=== PATIENT | male | born 1950 | race Caucasian/White ===

== ENCOUNTER 2019-09-05 10:35 | Outpatient (CLI) | payer MEDICARE, SELFPAY ==
--- NOTE | ~2019-09-05 | US_ITS ---
EXAMINATION: US venous doppler LE EXAM DATE: 09/05/2019 11:18 INDICATION: Right-sided DVT follow-up. TECHNIQUE: Multiple grayscale, color flow and Doppler images of the right lower extremity deep venous system obtained and reviewed. Comparison is made to prior examination from 05/14/2019. FINDINGS: RIGHT SIDE Common femoral: --------No thrombosis. 2 seconds reflux. Profunda femoral: ------- Normal. Femoral: Normal. Popliteal: No thrombosis. 1.5 seconds reflux. Posterior tibial: --------- Normal. Peroneal: Nonocclusive thrombus. Gastrocnemius: Not visualized. Soleus: Not visualized. Greater saphenous: ----- Normal. Lesser saphenous: ------ Not visualized. IMPRESSION: 1. Persistent right gastrocnemius DVT. 2. Common femoral, popliteal venous reflux. Reviewed, dictated and finalized at location A. 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
== END 2019-09-05 10:36 | disposition home or self-care (01) ==
PROVIDERS: PCP Family Medicine; Visit Provider Internal Medicine Hematology & Oncology
DX: I82.461 Acute embolism and thrombosis of right calf muscular vein (principal)
CPT/HCPCS: 93971

== ENCOUNTER 2020-03-05 08:20 | Outpatient (CLI) | payer MEDICARE, SELFPAY ==
--- NOTE | ~2020-03-05 | US_ITS ---
EXAMINATION: US venous doppler LE EXAM DATE: 03/05/2020 09:10 INDICATION: Follow-up DVT. TECHNIQUE: Multiple grayscale, color flow and Doppler images of the right lower extremity deep venous system obtained and reviewed. Comparison is made to prior examination from 09/05/2019. FINDINGS: RIGHT SIDE Common femoral: -------- Normal. Profunda femoral: ------- Normal. Femoral: Normal. Popliteal: Normal. Posterior tibial: --------- Normal. Peroneal: Normal. Gastrocnemius: Mostly patent. Small wall adherent chronic thrombus or scarring. Soleus: Not visualized. Greater saphenous: ----- Normal. Lesser saphenous: ------ Not visualized. IMPRESSION: 1. 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 Reviewed, dictated and finalized at location B.
== END 2020-03-05 08:21 | disposition home or self-care (01) ==
LOC: ANHIMG 08:23
PROVIDERS: PCP Family Medicine; Visit Provider Internal Medicine Hematology & Oncology
DX: I82.4Y1 Acute embolism and thrombosis of unspecified deep veins of right proximal lower extremity (principal)
CPT/HCPCS: 93971

== ENCOUNTER 2021-01-15 09:18 | Outpatient (CLI) | payer MEDICARE, SELFPAY ==
--- NOTE | 2021-01-15 16:08 | WPDPFTINT ---
PFT Procedure Performed PFT Procedure Performed Spirometry with Pre/Post Bronchodilator Plethysmography (Lung Vol) Diffusing Cap (DLCO) Flow Vol Loop PFT Interpretation This is a pulmonary function test with pre and post-bronchodilator spirometry, plethysmography and diffusing capacity. The test was performed and results interpreted in accordance with the 2019 and 2005 ATS/ERS Task Force guidelines respectively using the Global Lung Function Initiative-2012 reference equations. Patient demonstrated good effort and cooperation. Reproducibility criteria were met. The quality of the pre bronchodilator spirometry maneuver was Grade B and post bronchodilator spirometry maneuver was Grade B. Findings: Spirometry: There is decreased maximal expiratory airflow at low lung volumes with concave expiratory flow tracing. The pre bronchodilator FVC is 3.93 L, 89% predicted. The pre bronchodilator FEV1 is 2.47 L, 74% predicted. The FEV1: FVC ratio 63%. The post bronchodilator FVC is 4.63 L, representing an 18% increase. The post bronchodilator FEV1 is 2.99 L, representing a 21% increase. Plethysmography: The total lung capacity is 10.28 L, 143% predicted. Functional residual capacity is 6.78 L, 177% predicted. The residual volume is 6.30 L, 254% predicted. Diffusing capacity: The absolute diffusion capacity is 28.1, 105% predicted. The diffusing capacity corrected for alveolar volume is 4.37, 112% predicted. Impression: There is a mild obstructive abnormality with significant improvement after inhaling a single dose of albuterol. The increase in residual volume is consistent with air trapping from an obstructive abnormality. Hyperinflation is present is demonstrated by the increase in functional residual capacity and total lung capacity and is consistent with an obstructive abnormality. The diffusing capacity is normal There are no prior studies for comparison
== END 2021-01-15 09:19 | disposition home or self-care (01) ==
PROVIDERS: PCP Family Medicine; Visit Provider Family Medicine
DX: I49.9 Cardiac arrhythmia, unspecified (principal); Z86.711 Personal history of pulmonary embolism; R06.02 Shortness of breath; B94.8 Sequelae of other specified infectious and parasitic diseases; R94.2 Abnormal results of pulmonary function studies
CPT/HCPCS: 94060; 94726; 94729

== ENCOUNTER 2021-02-04 15:27 | Emergency (ER) | payer MEDICARE, SELFPAY ==
[2021-02-04] VITALS (21 sets, daily range): BP systolic 109–144; BP diastolic 66–87; PULSE 55–63; RESP 10–20; TEMP 36.6; O2SAT 95–100
--- NOTE | ~2021-02-04 | US_ITS ---
US venous doppler [facility] DATE: 02/04/2021 16:44 INDICATION: Left lower extremity swelling TECHNIQUE: Real-time and color flow imaging and Doppler analysis of the veins of the left lower extre mity COMPARISON: None FINDINGS: The left greater saphenous vein is patent. There is spontaneous and phasic flow and normal augmentation and color flow signal and normal compression of the deep veins of the left leg. IMPRESSION: No evidence of deep venous thrombosis of the left leg Reviewed, dictated and finalized at Location A. Reviewed, dictated and finalized at location A.
--- NOTE | ~2021-02-04 | XR_ITS ---
XR foot LT min 3V DATE: 02/04/2021 17:01 INDICATION: Fall after knee surgery. Discoloration. TECHNIQUE: 4 views COMPARISON: None FINDINGS: Mild plantar calcaneal enthesopathy. Osteoarthritic change at the first and to a lesser extent second through fourth metatarsophalangeal j oints. There is a linear lucency overlying the neck and head of the proximal phalanx of the third digit on o ne of the oblique views which may indicate a very subtle nondisplaced fracture, not confirmed on the other views. No other fracture, dislocation, periosteal reaction or bone destruction is detected. IMPRESSION: Questionable linear nondisplaced fracture at the neck and head of the proximal phalanx of the third digit. Consider dedicated third toe radiographic evaluation Osteoarthritic arthritis at the first and to a lesser extent second through fourth metatarsophalangea l joints Plantar calcaneal enthesopathy Reviewed, dictated and finalized at location A. IMPRESSION: Questionable linear nondisplaced fracture at the neck and head of t he proximal phalanx of the third digit. Consider dedicated third toe radiograph ic evaluation Osteoarthritic arthritis at the first and to a lesser extent second through fou rth metatarsophalangeal joints Plantar calcaneal enthesopathy
--- NOTE | ~2021-02-04 | US_ITS ---
EXAMINATION: US arterial ankle brachial ind DATE: 02/04/2021 16:44 INDICATION: Swelling of the left lower extremity. Trophic changes including thick toenails and loss o f hair. TECHNIQUE: Segmental pressures and plethysmographic and Doppler waveforms of the brachial and lower e xtremity arteries were obtained. COMPARISON: None. FINDINGS: Right and left brachial artery pressures of 123 mm Hg and 126 mm Hg, respectively, are concordant (no rmal difference <= 30 mmHg). The right ankle-brachial index (MICHAELA) is 1.59 (normal >= 0.9-1.0). The right great toe-brachial index (TBI) is 0.79 (normal >= 0.65). Arterial Doppler waveforms are triphasic. The left MICHAELA is 1.19. The left TBI is 0.68. Arterial Doppler waveforms are triphasic. IMPRESSION: Normal examination Reviewed, dictated and finalized at Location A. Reviewed, dictated and finalized at location A. IMPRESSION: Normal examination
--- NOTE | ~2021-02-04 | XR_ITS ---
XR ankle LT min 3V DATE: 02/04/2021 16:21 INDICATION: Pain and swelling TECHNIQUE: 4 views COMPARISON: None FINDINGS: Plantar calcaneal enthesopathy. There is generalized soft tissue swelling of the ankle. No fracture or dislocation of the ankle or disruption of the ankle mortise. No periosteal reaction or bone destruction. IMPRESSION: Plantar calcaneal enthesopathy Soft tissue swelling Reviewed, dictated and finalized at location A.
--- NOTE | 2021-02-04 16:07 | ED.EXTPRO ---
HPI - Extremity Problem General Chief complaint: Extremity Problem,Nontraumatic Stated complaint: left foot discoloration Time Seen by Provider: 02/04/21 15:40 Source: patient Limitations: no limitations History of Present Illness HPI Narrative: 71-year-old male Patient lives in [place] and recently had a left knee replaced at facility in [facility] Patient states while he was still in the hospital and under the influence of a nerve block he wrenched his left ankle He reports that x-rays done at the time were fine However since going home, and also since resuming the Xarelto that he usually takes because of VTE in his right leg, he has noticed a substantial increase in the amount of swelling and ecchymosis in the lower leg on the left side I guess today a visiting nurse was concerned there could be some vascular compromise or that the orthopedist in [place] had missed a fracture and should get checked for this here since he sees Dr. Jacobs Related Data Allergies Allergy/AdvReac Type Severity Reaction Status Date / Time No Known Allergies Allergy Unverified 03/29/19 08:23 Review of Systems Review of Systems: All systems reviewed & are unremarkable except as noted in HPI and below Constitutional: Constitutional: Reports no additional constitutional complaints, Denies chills, Denies fever(s) and Denies headache(s) Eyes: Eyes: Reports no additional eye complaints and Denies change in vision ENT: Denies headache(s) and Denies sore throat Cardiovascular: Cardiovascular: Denies chest pain and Denies dyspnea Respiratory: Respiratory: Denies cough and Denies dyspnea Gastrointestinal: Gastrointestinal: Denies abdominal pain, Denies diarrhea and Denies vomiting Genitourinary: Genitourinary: Denies dysuria and Denies urinary frequency Musculoskeletal: Musculoskeletal: Denies deformity, Reports arthralgias, Reports joint swelling, Reports muscle cramps and Denies numbness Integumentary/Breasts: Skin/Breast: Reports erythema, Denies rash and Denies wounds Neurologic: Denies headache(s), Denies focal weakness and Denies numbness Psychiatric: Psychiatric: Reports no additional psychiatric complaints Endocrine: Endocrine: Reports no additional endocrine complaints Hematologic/Lymphatic: Hematologic/Lymphatic: Reports no additional hematologic/lymphatic complaints Allergic/Immunologic: Allergic/Immunologic: Reports no additional allergic/immunologic complaints [facility] Social History Social History Smoking status: Never smoker Exam Const: General: cooperative, no acute distress and alert Orientation/consciousness: patient oriented x3 (alert) HENMT: Head: normal to inspection, normocephalic and atraumatic Ears: external ears normal General nose exam: no epistaxis Eyes: Conjunctivae: conjunctivae normal EOM: EOMs intact bilaterally Neck: Neck: normal visual inspection, supple and no JVD Resp: Effort & Inspection: normal respiratory effort and not labored Auscultation: other (BS =) Skin: General skin exam: no rashes or lesions noted Wounds: wounds noted Neuro: General: patient oriented x3 (alert) and moves all extremities Speech: normal speech Extrem: General: edema Other: Left leg, knee dressing is intact, there is quite a bit of swelling and scattered ecchymoses from the knee down to the toes, there is 1 large and 1 small blister on the medial leg, no deformity or crepitus, no warmth, dorsalis pedis is dopplerable Psych: Affect: normal affect Course Course Emergency Course: Rechecked in light of expiratory report, that third toe is not very tender at all so the physical exam really does not support the idea of a little chip fracture there Vital Signs Vital signs: Vital Signs Temperature 36.6 C 02/04/21 15:57 Pulse Rate 58 L 02/04/21 15:57 Respiratory Rate 14 02/04/21 15:57 Blood Pressure 144/76 H 02/04/21 15:57 Pulse Oximetry 99 02/04/21 15:57 Temperature 36.6 C 07
== END 2021-02-04 18:15 | disposition home or self-care (01) ==
PROVIDERS: Emergency Provider Emergency Medicine; PCP Family Medicine
DX: G89.18 Other acute postprocedural pain (principal); Z96.652 Presence of left artificial knee joint; Z79.01 Long term (current) use of anticoagulants; M77.32 Calcaneal spur, left foot; M19.072 Primary osteoarthritis, left ankle and foot; R93.6 Abnormal findings on diagnostic imaging of limbs
CPT/HCPCS: 73610; 73630; 93922; 93971; 99284

== ENCOUNTER 2023-05-11 09:30 | Outpatient (CLI) | payer MEDICARE, SELFPAY ==
[2023-05-11 09:44] LABS: Basophils Percent Auto 0.6 % (0.2-1.2); Eosinophils Absolute Auto 0.1 K/mm3 (0-0.3); Eosinophils Percent Auto 1.4 % (0-4.4); Hematocrit 45.4 % (42.0-52.0); Hemoglobin 15.1 g/dL (14.0-18.0); Immature Granulocyte Absolute 0.03 K/mm3 (0.00-0.031); Immature Granulocyte Percent A 0.5 % (0-0.5); Lymphocytes Absolute Auto 1.44 K/mm3 (0.9-3.2); Mean Corpuscular HGB Conc 33.3 g/dl (32-36); Mean Corpuscular Hemoglobin 28.3 pg (26-34); Mean Corpuscular Volume 85.2 fl (80-100); Mean Platelet Volume 9.2 fl (7.4-10.4); Monocytes Absolute Auto 0.6 K/mm3 (0.1-0.6); Monocytes Percent Auto 9.6 % (2.6-8.5); Neutrophils Absolute Auto 4.3 K/mm3 (1.3-6.7); Neutrophils Percent Auto 65.9 % (45.5-73.1); Platelet Count Result 202 k/mm3 (150-375); Red Blood Count 5.33 M/mm3 (4.6-6.20); Red Cell Distribution Width 14.3 % (11.5-14.5); White Blood Count 6.6 K/mm3 (4.5-10.0)
[2023-05-11 09:49] LABS: Blood Urea Nitrogen 19 mg/dL (8-26); Carbon Dioxide 24 mmol/L (22-30); Chloride 104 mmol/L (98-109); Estimated Glomerular Filt Rate > 60; Glucose 125 mg/dL (70-105); Ionized Calcium (POC) 1.14 mmol/L (1.11-1.31); Potassium 3.5 mmol/L (3.5-4.9); Sodium 140 mmol/L (138-146)
[2023-05-11 12:31] LABS: Alanine Aminotransferase 26 U/L (6-50); Albumin Level 4.3 g/dL (3.5-5.1); Alkaline Phosphatase 67 U/L (38-126); Anion Gap 12 mmol/L (8-16); Aspartate Amino Transferase 28 U/L (17-59); Blood Urea Nitrogen 18 mg/dL (9-20); Calcium 8.8 mg/dL (8.4-10.2); Carbon Dioxide 21 mmol/L (22-30); Chloride 104 mmol/L (98-107); Estimated Glomerular Filt Rate > 60; Glucose 120 mg/dL (65-110); Potassium 3.5 mmol/L (3.4-5.0); Sodium 137 mmol/L (137-145)
== END 2023-05-11 09:31 | disposition home or self-care (01) ==
LOC: ANHLAB 09:34
PROVIDERS: PCP Family Medicine; Visit Provider Internal Medicine Hematology & Oncology
DX: I26.92 Saddle embolus of pulmonary artery without acute cor pulmonale (principal)
CPT/HCPCS: 36415; 80047; 80053; 85025

== ENCOUNTER 2024-05-13 09:41 | Outpatient (CLI) | payer MEDICARE, SELFPAY ==
[2024-05-13 10:03] LABS: Basophils Percent Auto 0.2 % (0.2-1.2); Eosinophils Absolute Auto 0.1 K/mm3 (0-0.3); Eosinophils Percent Auto 1.2 % (0-4.4); Hematocrit 45.5 % (42.0-52.0); Hemoglobin 15.2 g/dL (14.0-18.0); Immature Granulocyte Absolute 0.04 K/mm3 (0.00-0.031); Immature Granulocyte Percent A 0.5 % (0-0.5); Lymphocytes Absolute Auto 1.32 K/mm3 (0.9-3.2); Lymphocytes Percent Auto 16.3 % (18.3-44.2); Mean Corpuscular HGB Conc 33.4 g/dl (32-36); Mean Corpuscular Hemoglobin 29.2 pg (26-34); Mean Corpuscular Volume 87.3 fl (80-100); Mean Platelet Volume 8.9 fl (7.4-10.4); Monocytes Absolute Auto 0.7 K/mm3 (0.1-0.6); Monocytes Percent Auto 8.5 % (2.6-8.5); Neutrophils Percent Auto 73.3 % (45.5-73.1); Platelet Count Result 190 k/mm3 (150-375); Red Blood Count 5.21 M/mm3 (4.6-6.20); Red Cell Distribution Width 14.4 % (11.5-14.5); White Blood Count 8.1 K/mm3 (4.5-10.0)
[2024-05-13 10:06] LABS: Blood Urea Nitrogen 19 mg/dL (8-26); Carbon Dioxide 25 mmol/L (22-30); Chloride 102 mmol/L (98-109); Estimated Glomerular Filt Rate > 60; Glucose 103 mg/dL (70-105); Ionized Calcium (POC) 1.19 mmol/L (1.11-1.31); Potassium 3.8 mmol/L (3.5-4.9); Sodium 139 mmol/L (138-146)
[2024-05-13 12:20] LABS: D Dimer 0.28 ug/mL (<0.48)
== END 2024-05-13 09:42 | disposition home or self-care (01) ==
LOC: ANHLAB 09:47
PROVIDERS: PCP Family Medicine; Visit Provider Internal Medicine Hematology & Oncology
DX: I26.92 Saddle embolus of pulmonary artery without acute cor pulmonale (principal)
CPT/HCPCS: 36415; 80047; 85025; 85380

== ENCOUNTER 2025-05-14 09:34 | Outpatient (CLI) | payer MEDICARE, SELFPAY ==
--- OUTSIDE RECORDS SUMMARY | 2024-06-15 04:00 | XMS_ITS ---
Author Organization [facility] Address [address] [place] [address] Care Team Providers Care Kitchen Assistant Name Role Phone Dr. Yenifer Adamson Primary Care Provider [phone] Migration, Provider Unavailable Unavailable REASON FOR VISIT EMR-Malick Encounters Encounter Location Date Provider Diagnosis [facility] [address] [place] [address] 06/15/2024 Provider Migration Plan Of Treatment Medication Medication Name Sig Start Date Stop Date Notes Benzonatate 100 MG Capsule 1 Oral three times a day; Duration: 10 10/06/2022 10/15/2022 ProAir RespiClick 108 (90 Base) MCG/ACT Aerosol Powder Breath Activated 2 Inhalation every 4-6 hours; Duration: 0 01/21/2021 03/02/2023 ,discontinuereason:D iscontinued,PRN Reason:for cough Tamsulosin HCl 0.4 MG Capsule 1 Oral every day; Duration: 02/26/2024 02/26/2024 Rx Refill Request,discontinuer paco:Refilled Vitamin B-12 1000 MCG Tablet 1 Oral every day; Duration: 0 08/18/2021 08/18/2021 Vitamin D2 1,250 mcg (50,000 unit) ; Duration: 0 01/19/2022 04/10/2022 ,discontinuereas on:D iscontinued *Pick strength-form from [facility] for eRX* Triamcinolone Acetonide 0.1 % Cream External two times a day; Duration: 0 03/28/2024 03/28/2024 Cymbalta 30 MG Capsule Delayed Release Particles 1 Oral every night at bedtime; Duration: 30 05/26/2021 08/17/2021 ,discontinuereason:D iscontinued Doxepin 3 mg Tablet(s) 1 BY MOUTH every night at bedtime; Duration: 10/11/2023 04/07/2024 *Reorder from [facility] for eRx and Interaction Alerts* Zithromax Z-Hugh 250 MG Tablet Oral; Duration: 0 08/26/2022 08/26/2022 Potassium Chloride Cookie ER 20 MEQ Tablet Extended Release 1 Oral every day; Duration: 10/09/2023 10/09/2023 Rx Refill Request,discontinuer paco:Refilled tamsulosin 0.4 mg Tablet(s) 1 Oral every day; Duration: 12/09/2020 01/05/2021 ,discontinuereason:D iscontinued *Reorder from [facility] for eRx and Interaction Alerts* Fluticasone Propionate 50 MCG/ACT Suspension 1 Nasal two times a day; Duration: 10/11/2023 12/09/2023 predniSONE 20 MG Tablet Oral as directed ; Duration: 10/06/2022 10/06/2022 Lagevrio (EUA) 200 mg Capsule(s) 4 BY MOUTH two times a day; Duration: 12/25/2023 12/29/2023 *Reorder from [facility] for eRx and Interaction Alerts* Trelegy Ellipta 200-62.5-25 MCG/ACT Aerosol Powder Breath Activated 1 Inhalation every day; Duration: 0 05/14/2021 01/18/2022 ,discontinuereason:D iscontinued Doxycycline Monohydrate 100 MG Capsule 1 Oral two times a day; Duration: 10/06/2022 10/15/2022 Furosemide 40 MG Tablet 1 Oral every day ; Duration: 02/12/2024 02/12/2024 Rx Refill Request,discontinuer paco:Refilled Aricept 5 MG Tablet 1 Oral every day; Duration: 0 01/19/2022 03/04/2023 ,discontinuereason:R efilled Potassium Chloride ER 20 MEQ Tablet Extended Release 1 Oral every day; Duration: 12/09/2020 08/17/2021 ,discontinuereason:D iscontinued Pantoprazole Sodium 40 MG Tablet Delayed Release 1 Oral every day; Duration: 07/21/2023 09/12/2023 pt stopped taking, ineffective.,discont inuereason:Discontin ued Breo Ellipta 100-25 MCG/ACT Aerosol Powder Breath Activated Inhalation; Duration: 04/02/2021 05/14/2021 ,discontinuereason:D iscontinued Advair Diskus 250-50 MCG/ACT Aerosol Powder Breath Activated 2 Inhalation two times a day; Duration: 03/05/2023 09/12/2023 pulm changed.,discontinue reason:Discontinued Donepezil HCl 5 MG Tablet 1 Oral every day; Duration: 02/27/2024 02/27/2024 Rx Refill Request,discontinuer paco:Refilled Vitamin D3 10 MCG (400 UNIT) Capsule Oral; Duration: 02/18/2022 04/10/2022 ,discontinuere ason:D iscontinued Next Appt Details Provider Name:Dr. Marisol Webb, 04/30/2026 02:15:00 PM, [address] [place], [address], [phone] Progress Notes * Antoine MATTADOB:1950 (75 yo M)Acc No.[id number]:06/15/2024 Patient: Antoine RIVERA :1950 A ge:74 Y S ex:Male Address:[address] [place] [address], [id number] * Refills Stop Fluticasone Propionate Suspension, 50 MCG/ACT, Nasal, 1, 1, two times a day, 30 Stop Triamcinolone Acetonide Cream, 0.1 %, External, 60, two times a day, 0 Stop Potassium Chloride Cookie ER Tablet Extended Release, 20 MEQ, Oral, 90, 1, every day, 90 Stop Potassium Chloride Cookie ER Tablet Extended Release, 20 MEQ, Oral, 90, 1, every day, 90 Stop Furosemide Tablet, 40 MG, Oral, 90, 1, every day, 90 Stop Pantoprazole Sodium Tablet Delayed Release, 40 MG, Oral, 30, 1, every day, 30 Stop Pantoprazole Sodium Tablet Delayed Release, 40 MG, Oral, 30, 1, every day, 30 Stop Pantoprazole Sodium Tablet Delayed Release, 40 MG, Oral, 30, 1, every day, 30 Stop Pantoprazole Sodium Tablet Delayed Release, 40 MG, Oral, 30, 1, every day, 30 Stop Potassium Chloride Cookie ER Tablet Extended Release, 20 MEQ, Oral, 90, 1, every day, 90 Stop tamsulosin Tablet(s), 0.4 mg, Oral, 1, every day, 0 Stop Benzonatate Capsule, 100 MG, Oral, 30, 1, three times a day, 10 Stop Donepezil HCl Tablet, 5 MG, Oral, 90, 1, every day, 90 Stop Furosemide Tablet, 40 MG, Oral, 90, 1, every day, 90 Stop Breo Ellipta Aerosol Powder Breath Activated, 100-25 MCG/ACT, Inhalation, 60, 30 Stop Furosemide Tablet, 40 MG, Oral, 90, 1, every day, 90 Stop Tamsulosin HCl Capsule, 0.4 MG, Oral, 30, 1, every day, 30 Stop Vitamin D3 Capsule, 10 MCG (400 UNIT), Oral, 0 Stop Potassium Chloride Cookie ER Tablet Extended Release, 20 MEQ, Oral, 90, 1, every day, 90 Stop Potassium Chloride Cookie ER Tablet Extended Release, 20 MEQ, Oral, 90, 1, every day, 90 Stop Potassium Chloride Cookie ER Tablet Extended Release, 20 MEQ, Oral, 90, 1, every day, 90 Stop Furosemide Tablet, 40 MG, Oral, 90, 1, every day, 90 Stop Furosemide Tablet, 40 MG, Oral, 90, 1, every day, 90 Stop Advair Diskus Aerosol Powder Breath Activated, 250-50 MCG/ACT, Inhalation, 1, two times a day, 0 Stop Aricept Tablet, 5 MG, Oral, 30, 1, every day, 30 Stop Pantoprazole Sodium Tablet Delayed Release, 40 MG, Oral, 30, 1, every day, 30 Stop Advair Diskus Aerosol Powder Breath Activated, 250-50 MCG/ACT, Inhalation, 120, 2, two times a day, 30 Stop Aricept Tablet, 5 MG, Oral, 1, every day, 0 Stop Donepezil HCl Tablet, 5 MG, Oral, 90, 1, every day, 90 Stop Furosemide Tablet, 40 MG, Oral, 90, 1, every day, 90 Stop Breo Ellipta Aerosol Powder Breath Activated, 100-25 MCG/ACT, Inhalation, 30, 1, every day, 30 Stop Furosemide Tablet, 40 MG, Oral, 90, 1, every day, 90 Stop predniSONE Tablet, 20 MG, Oral, 13, as directed, 0 Stop Trelegy Ellipta Aerosol Powder Breath Activated, 200-62.5-25 MCG/ACT, Inhalation, 1, 1, every day, 0 Stop Lagevrio (EUA) Capsule(s), 200 mg, BY MOUTH, 40, 4, two times a day, 5 Stop Doxepin Tablet(s), 3 mg, BY MOUTH, 30, 1, every night at bedtime, 30 Stop Cymbalta Capsule Delayed Release Particles, 30 MG, Oral, 30, 1, every night at bedtime, 30 Stop Furosemide Tablet, 40 MG, Oral, 90, 1, every day, 90 Stop Furosemide Tablet, 40 MG, Oral, 90, 1, every day, 90 Stop Furosemide Tablet, 40 MG, Oral, 90, 1, every day, 90 Stop Doxycycline Monohydrate Capsule, 100 MG, Oral, 20, 1, two times a day, 10 Stop Furosemide Tablet, 40 MG, Oral, 90, 1, every day, 90 Stop Potassium Chloride ER Tablet Extended Release, 20 MEQ, Oral, 90, 1, every day, 90 Stop Breo Ellipta Aerosol Powder Breath Activated, 100-25 MCG/ACT, Inhalation, 60, 30 Stop Furosemide Tablet, 40 MG, Oral, 90, 1, every day, 90 Stop Donepezil HCl Tablet, 5 MG, Oral, 90, 1, every day, 90 Stop Furosemide Tablet, 40 MG, Oral, 90, 1, every day, 90 Stop Tamsulosin HCl Capsule, 0.4 MG, Oral, 30, 1, every day, 30 Stop Pantoprazole Sodium Tablet Delayed Release, 40 MG, Oral, 30, 1, every day, 30 Stop Potassium Chloride Cookie ER Tablet Extended Release, 20 MEQ, Oral, 90, 1, every day, 90 Stop Benzonatate Capsule, 100 MG, Oral, 30, 1, three times a day, 10 Stop Pantoprazole Sodium Tablet Delayed Release, 40 MG, Oral, 30, 1, every day, 30 Stop Vitamin B-12 Tablet, 1000 MCG, Oral, 90, 1, every day, 0 Stop Vitamin D2, 1,250 mcg (50,000 unit), 0 Stop Potassium Chloride Cookie ER Tablet Extended Release, 20 MEQ, Oral, 90, 1, every day, 90 Stop Potassium Chloride Cookie ER Tablet Extended Release, 20 MEQ, Oral, 90, 1, every day, 90 Stop Doxepin Tablet(s), 3 mg, BY MOUTH, 90, 1, every night at bedtime, 90 Stop Tamsulosin HCl Capsule, 0.4 MG, Oral, 30, 1, every day, 30 Stop Zithromax Z-Hugh Tablet, 250 MG, Oral, 6, 0 Stop ProAir RespiClick Aerosol Powder Breath Activated, 108 (90 Base) MCG/ACT, Inhalation, 9, 2, every 4-6 hours, 0 Stop ProAir RespiClick Aerosol Powder Breath Activated, 108 (90 Base) MCG/ACT, Inhalation, 8.5, 2, every 4-6 hours, 0 Subjective: * Chief Complaints: * E MR-Malick Objective: Past Vitals:* 03/28/2024 BP: 90/50 mm Hg, HR: 56 /min , Oxygen sat %: 95 %, Wt: 287.99 lbs, Wt-k.63 kg * 10/11/2023 BP: 122/66 mm Hg, HR: 68 /mi n, Oxygen sat %: 96 %, Wt: 295.99 lbs, Wt-k.26 kg * * Date:
--- OUTSIDE RECORDS SUMMARY | 2024-06-16 04:00 | XMS_ITS ---
Author Organization [facility] Address [address] [place] [address] Care Team Providers Care Masonry Contractor Administrator Name Role Phone Dr. Yenifer Adamson Primary Care Provider [phone] Migration, Provider Unavailable Unavailable Allergies No Known Allergies REASON FOR VISIT EMR-Malick Medications Medication SIG (Take, Route, Frequency, Duration) Notes Start Date End Date Status Tamsulosin HCl 0.4 MG Capsule 1 Oral every day; Duration: 30 04/24/2024 06/22/2024 Active Donepezil HCl 5 MG Tablet 1 Oral every day; Duration: 90 05/23/2024 08/20/2024 Active Vitamin C 1000 MG Tablet Oral; Duration: 0 02/18/2022 Active Zinc oral; Duration: 0 *Pick strength-form from [employer] for eRX* 02/18/2022 Active Potassium Chloride Cookie ER 20 MEQ Tablet Extended Release 1 Oral every day; Duration: 04/04/2024 09/30/2024 Active Furosemide 40 MG Tablet 1 Oral every day; Duration: 90 05/14/2024 08/11/2024 Active Breztri Aerosphere 160-9-4.8 MCG/ACT Aerosol 2 Inhalation two times a day; Duration: 0 09/13/2023 Active Restasis ophthalmic (eye); Duration: 0 *Pick strength-form from [employer] for eRX* 03/28/2024 Active Aspirin Adult Low Strength 81 MG Tablet Delayed Release 1 Oral every day; Duration: 0 12/09/2020 Active Vitamin B-12 1000 MCG Tablet 1 Oral every day; Duration: 0 12/09/2020 Active Xarelto 20 MG Tablet 1 Oral every day; Duration: 0 12/09/2020 Active metFORMIN HCl ER 500 MG Tablet Extended Release 24 Hour 1 Oral two times a day; Duration: 30 03/28/2024 06/25/2024 Active Social History Social History Additional Details Category Social Info Options Details Migrated Social History Migrated Social History Employment:[employer] , Marital status: Encounters Encounter Location Date Provider Diagnosis [facility] [address] [place] [address] 06/16/2024 Provider Migration Plan Of Treatment Next Appt Details Provider Name:Dr. 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 Moderate size marginal, one large marginal, and several smaller marginals without occlusive disease knee surgery ,notes : left knee replacement 2020 r ight knee replacement 02/2022 (70615) DOPPLER ECHO EXAM HEART ,notes : EF 55-60%. Mild cocentric left ventricular hypertrophy colonoscopy ,notes : 03/29/19 Cardiovascular stress test using maximal or submaximal treadmill or bicycle exercise, continuous donald 05/30/2016 * Social History: M igrated Social History: M igrated Social History: Employment:[employer],Marital status:. * Medications: T akingFurosemide 40 MG Tablet 1 Oral every day , stop date 08/11/2024Restasis ophthalmic (eye) , Notes to Pharmacist: *Pick strength-form from [employer] for eRX*Vitamin B-12 1000 MCG Tablet 1 Oral every day Vitamin C 1000 MG Tablet Oral Breztri Aerosphere 160-9-4.8 MCG/ACT Aerosol 2 Inhalation two times a day Zinc oral , Notes to Pharmacist: *Pick strength-form from [facility] for eRX*Xarelto 20 MG Tablet 1 Oral every day Aspirin Adult Low Strength 81 MG Tablet Delayed Release 1 Oral every day metFORMIN HCl ER 500 MG Tablet Extended Release 24 Hour 1 Oral two times a day , stop date 06/25/2024Tamsulosin HCl 0.4 MG Capsule 1 Oral every day , stop date 06/22/2024onepezil HCl 5 MG Tablet 1 Oral every day , stop date 08/20/2024Potassium Chloride Cookie ER 20 MEQ Tablet Extended Release 1 Oral every day , stop date 09/30/2024Taking Furosemide 40 MG Tablet 1 Oral every day , stop date 08/11/2024Taking Restasis ophthalmic (eye) , Notes to Pharmacist: *Pick strength-form from [facility] for eRX*Taking Vitamin B-12 1000 MCG Tablet 1 Oral every day Taking Vitamin C 1000 MG Tablet Oral Taking Breztri Aerosphere 160-9-4.8 MCG/ACT Aerosol 2 Inhalation two times a day Taking Zinc oral , Notes to Pharmacist: *Pick strength-form from [facility] for eRX*Taking Xarelto 20 MG Tablet 1 Oral every day Taking Aspirin Adult Low Strength 81 MG Tablet Delayed Release 1 Oral every day Taking metFORMIN HCl ER 500 MG Tablet Extended Release 24 Hour 1 Oral two times a day , stop date 06/25/2024Taking Tamsulosin HCl 0.4 MG Capsule 1 Oral every day , stop date 06/22/2024Taking Donepezil HCl 5 MG Tablet 1 Oral every day , stop date 08/20/2024Taking Potassium Chloride Cookie ER 20 MEQ Tablet Extended Release 1 Oral every day , stop date 09/30/2024 * Allergies: N .K.D.A. Objective: Past Vitals:* 03/28/2024 BP: 90/50 mm Hg, HR: 56 /min , Oxygen sat %: 95 %, Wt: 287.99 lbs, Wt-k.63 kg * 10/11/2023 BP: 122/66 mm Hg, HR: 68 /mi n, Oxygen sat %: 96 %, Wt: 295.99 lbs, Wt-k.26 kg * * Date:
[2025-05-14 09:52] LABS: Hematocrit 47.6 % (42.0-52.0); Hemoglobin 15.6 g/dL (14.0-18.0); Immature Granulocyte Percent A 0.4 % (0-0.5); Lymphocytes Absolute Auto 1.48 K/mm3 (0.9-3.2); Mean Corpuscular HGB Conc 32.8 g/dl (32-36); Mean Corpuscular Hemoglobin 29.2 pg (26-34); Mean Corpuscular Volume 89.0 fl (80-100); Nucleated Red Blood Cells Absolute Auto 0.000 K/mm3 (0.0-0.012); Nucleated Red Blood Cells Perc 0.0 % (0.0-0.2); Platelet Count Result 192 k/mm3 (150-375); Red Blood Count 5.35 M/mm3 (4.6-6.20); White Blood Count 6.8 K/mm3 (4.5-10.0)
[2025-05-14 09:56] LABS: Blood Urea Nitrogen 23 mg/dL (8-26); Carbon Dioxide 25 mmol/L (22-30); Chloride 103 mmol/L (98-109); Estimated Glomerular Filt Rate > 60; Glucose 101 mg/dL (70-105); Ionized Calcium (POC) 1.18 mmol/L (1.11-1.31); Potassium 4.4 mmol/L (3.5-4.9); Sodium 138 mmol/L (138-146)
--- OUTSIDE RECORDS SUMMARY | 2025-05-14 10:00 | XMS_ITS | Encounter Summary ---
Author Organization [facility] [employer] [facility] Address [address] [place] [address] Care Team Providers Care Training Director Name Role Phone Yenifer Adamson MD Primary Care Provider Reason for Visit * Reason Comments Follow Up Encounter Details Date Type Department Care Team (Late st Contact Info) Description 05/14/2025 10:00 AM CDT Office Visit [facility] Oncology and Hematology - [place] [address] [facility] [address] [place] [address] Nixon Jacobs MD [address] [facility] [address] [place] [address] Arrived Social History Tobacco Use Types Packs/Day Years Used Date Smoking Tobacco: Never Smokeless Tobacco: Never Tobacco Cessation:Counseling Given: Not Answered Alcohol Use Standard Drinks/Week Comments Yes 0 (1 standard drink = 0.6 oz pur e alcohol) Sex and Gender Information Value Date Recorded Sex Assigned at Not on file Legal Sex Male 9:25 AM CDT Gender Identity Not on file Sexual Orientation Not on file documented as of this encounter Last Filed Vital Signs Vital Sign Reading Time Taken Comments Blood Pressure 125/86 05/14/2025 10:09 AM CDT Pulse 67 05/14/2025 10:09 AM CDT Temperature 36.7 C (98 F) 05/14/2025 10:09 AM CDT Respiratory Rate 16 05/14/2025 10:09 AM CDT Oxygen Saturation 95% 05/14/2025 10:09 AM CDT Inhaled Oxygen Concentration - - Weight 129.3 kg (285 lb) 05/14/2025 10:09 AM CDT Height - - Body Mass Index 37.6 05/12/2022 8:20 AM CDT documented in this encounter Plan of Treatment Not on file documented as of this encounter Visit Diagnoses Not on filedocumented in this encounter Care Teams Training Director Relationship Specialty Start Date End Date Yenifer Adamson MD [address] [place] [address] PCP - General Family Practice 11/08/18 documented as of this encounter
--- OUTSIDE RECORDS SUMMARY | 2025-05-14 10:35 | XMS_ITS | Encounter Summary ---
Author Organization [facility] Address [address] [place] [address] Phone Care Team Providers Care Floor Coverer Name Role Phone Yenifer Adamson MD Primary Care Provider Reason for Visit * Reason Comments Refill Request Encounter Details Date Type Department Care Team ([facility] st Contact Info) Description 02/09/2022 Refill [facility] Orth[facility] Total Joint [place] [facility] [address] [place], [place] [id number] Richy Contreras MD [address] [place], [place] [address] Refill Request Social History Tobacco Use Types Packs/Day Years Used Date Smoking Tobacco: Never Smokeless Tobacco: Never Alcohol Use Standard Drinks/Week Comments Yes 3 (1 standard drink = 0.6 oz pur e alcohol) 3 beers a week Sex and Gender Information Value Date Recorded Sex Assigned at Not on file Legal Sex Male 12:17 PM CDT Gender Identity Not on file Sexual Orientation Not on file COVID-19 Exposure Response Date Recorded In the last 10 days, have yo u been in contact with someone who was confirmed or suspected to have Coronavirus/COVID-19? No / Unsure 01/12/2022 7:21 AM CDT documented as of this encounter Miscellaneous Notes * Telephone Encounter - Pratibha Jim RN - 02/09/2022 11:51 AM CDT As per telephone encounter from yesterday, Dr. Contreras has advised no refills are needed for Vitamin D. Refill refused. Closing encounter. 02/09/22 REANNA SERRANO documented in this encounter Plan of Treatment Not on file documented as of this encounter Visit Diagnoses Not on filedocumented in this encounter Care Teams Floor Coverer Relationship Specialty Start Date End Date Yenifer Adamson MD [address] [place] [address] PCP - General Family Medicine 10/12/20 documented as of this encounter
--- OUTSIDE RECORDS SUMMARY | 2025-05-14 10:35 | XMS_ITS | Encounter Summary ---
Author Organization [facility] Address [address] [place] [address] Phone Care Team Providers Care Seed Collector Name Role Phone Yenifer Adamson MD Primary Care Provider Encounter Details Date Type Department Care Team (Late st Contact Info) Description 10/24/2019 Scanned Document Non [facility] Referring Docs Nixon Jacobs MD Social History Tobacco Use Types Packs/Day Years Used Date Smoking Tobacco: Never Assessed Sex and Gender Information Value Date Recorded Sex Assigned at Not on file Legal Sex Male 12:17 PM CDT Gender Identity Not on file Sexual Orientation Not on file documented as of this encounter Plan of Treatment Not on file documented as of this encounter Visit Diagnoses Not on filedocumented in this encounter Care Teams Seed Collector Relationship Specialty Start Date End Date Yenifer Adamson MD [address] [place] [address] PCP - General Family Medicine 10/12/20 documented as of this encounter
--- OUTSIDE RECORDS SUMMARY | 2025-05-14 10:35 | XMS_ITS | Encounter Summary ---
Author Organization [facility] Address [address] [place] [address] Phone Care Team Providers Care Family Practice Doctor Name Role Phone Yenifer Adamson MD Primary Care Provider Reason for Referral * Consultation - Complete Specialty Diagnoses / Procedures Referred By Yvonne ponce Referred To Contact Diagnoses Osteoarthrosis involving lower leg Procedures AMB CONSULT EXTERNAL PHYSICAL THERAPY PROVIDER Richy Contreras MD [address] [place] [address] Phone: tel: fax: [facility] [address] [address] Phone: tel: fax: Referral ID Status Reason Start Date Expiration Date V isits Requested Visits Authorized [id number] Complete 10/26/2020 1 1 Encounter Details Date Type Department Care Team ([facility] st Contact Info) Description 10/23/2020 Telephone [facility] Total Joint [place] [facility] [address] [place] [address] Richy Contreras MD [address] [place] [address] Social History Tobacco Use Types Packs/Day Years Used Date Smoking Tobacco: Never Smokeless Tobacco: Never Sex and Gender Information Value Date Recorded Sex Assigned at Not on file Legal Sex Male 12:17 PM CDT Gender Identity Not on file Sexual Orientation Not on file COVID-19 Exposure Response Date Recorded In the last month, have you been in contact with someone who was confirmed or suspected to have Coronavirus / COVID-19? No / Unsure 10/23/2020 8:55 AM CDT documented as of this encounter Miscellaneous Notes * Telephone Encounter - Idris Christensen RN - 10/26/2020 8:54 AM CDT Patient has noted he would like OP PT at [facility] in [place], [place]. Called and spoke with Ana with the OP PT department. New orders have been placed and faxed. Fax confirmation received. [facility] (phone)- [phone] [facility] OP PT (fax)- [phone] * Telephone Encounter - Idris Christensen RN - 10/26/2020 8:43 AM CDT Spoke with the patient regarding the below advisement. Patient was responsive. Secondly, patient was inquiring about home care. Discussed the home day care provider on the floor will assist with coordinating home care. Patient responsive. REANNA FLOREZ * Telephone Encounter - Richy Contreras MD - 10/23/2020 1:50 PM CDT Injection to the right ankle is fine as long as it is more than 1 week out from surgery. * Telephone Encounter - Idris Christensen RN - 10/23/2020 12:29 PM CDT Routing to Dr. Contreras: Please review and advise, luiza. Patient inquiring if he may receive a cortisone injection to his right ankle prior to surgery? Okayto proceed since surgery is on the left leg, correct? Please advise. Thank you! REANNA FLOREZ * Telephone Encounter - Idris Christensen RN - 10/23/2020 11:11 AM CDT Pt in office on 10/23/2020. Scheduled for a left total knee arthroplasty on 01/27/[address] Contreras. Surgical screening and consent signing completed. See education documentation for further detail. Surgical site infection prevention handout reviewed and given to pt. Pt verbalized understanding. Encouraged to call with further questions or concerns. REANNA FLOREZ Patient denies needing a cane and a two wheeled walker. Patient is going to decide where he'd like to have OP PT. Currently he is interested in having OP PT at [facility] in [place], [place]. Patient is on Xarelto and ASA managed by Dr. Jacobs (oncology/hematology) with [facility]. Separate telephone encounter has been started 10/23/2020. documented in this encounter Plan of Treatment Not on file documented as of this encounter Visit Diagnoses Diagnosis Osteoarthrosis involving lower leg- Primary documented in this encounter Care Teams Family Practice Doctor Relationship Specialty Start Date End Date Yenifer Adamson MD [address] [place] [address] PCP - General Family Medicine 10/12/20 documented as of this encounter
--- OUTSIDE RECORDS SUMMARY | 2025-05-14 10:35 | XMS_ITS | Encounter Summary ---
Author Organization [facility] Address [address] [place] [address] Phone Care Team Providers Care Ladle Filler Name Role Phone Yenifer Adamson MD Primary Care Provider Reason for Referral * - Closed Specialty Diagnoses / Procedures Referred By Yvonne ponce Referred To Contact Diagnoses Chronic pain of right knee Procedures XR KNEES BOTH UPRIGHT AP / BOTH LATERALS / BOTH MERCHANT XR KNEE RIGHT LAT AND BILATERAL UPRIGHT / BILATERAL MERCHANT Richy Contreras MD [address] [place] [address] Phone: tel: fax: Referral ID Status Reason Start Date Expiration Date Visits Re quested Visits Authorized [id number] Closed 10/12/2020 10/12/2021 1 1 Encounter Details Date Type Department Care Team (Latest Contact Info) Description 10/23/2020 Transcribe Orders [facility] Ortho Total Joint [place] [facility] [address] [place] [address] Richy Contreras MD [address] [place], [place] [id number] Chronic pain of right knee Social History Tobacco Use Types Packs/Day Years [...] AM CDT documented as of this encounter Plan of Treatment Not on file documented as of this encounter Results * XR KNEES BOTH UPRIGHT AP / BOTH LATERALS / BOTH MERCHANT (10/23/2020 9:21 AM CDT) Anatomical Region Laterality Modality Knee Bilateral Digital Radiogra phy 10/23/2020 8:59 AM CDT Narrative 10/23/2020 11:08 AM CDT Accession Exam Completed Date/Time [id number] XR KNEES BOTH UPRIGHT AP / BOTH LATERAL 10/23/2020 09:21 Requesting: RICHY CONTRERAS PROVIDED REASON FOR STUDY:consult SYMPTOMS: Pt states having chronic pain in both knees; no hx of injury; hx of arthoscopic surgery 20 years ago COMPARISON:None FINDINGS: Multiple views of both knees including upright AP, merchant's, and lateral views. There is advanced medial compartment degenerative arthrosis bilaterally. Near hgyn-ob-vwcf appearance with subchondral sclerosis. Minimal joint line spurring. Mild bilateral patellofemoral arthrosis. Joint space narrowing to a mild degree. Joint line spurring. Minimal effusion on the right. Bilateral genu varus deformities. No acute bony findings. IMPRESSION: Advanced medial compartment joint space loss bilaterally. Genu varus deformities. Subchondral sclerosis. Small effusion on the right. Mild patellofemoral arthrosis bilaterally. Electronically Signed and Authenticated by Bernard Del Cid MD 10/23/2020 11:08 Procedure Note Bernard Del Cid MD - 10/23/2020 Accession Exam CompletedDate/Time [id number] XR KNEES BOTH UPRIGHT AP / BOTH LATERAL 109:21 Requesting: RICHY CONTRERAS PROVIDED REASON FOR STUDY:consult SYMPTOMS: Pt states having chronic pain in both knees; no hx of injury; hxof arthoscopic surgery 20 years ago COMPARISON:None FINDINGS: Multiple views of both knees including upright AP, merchant's, and lateralviews. There is advanced medial compartment degenerative arthrosisbilaterally. Near jawz-qr-gohx appearance with subchondral sclerosis.Minimal joint line spurring. Mild bilateral patellofemoral arthrosis. Joint space narrowing to a milddegree. Joint line spurring. Minimal effusion on the right. Bilateral genuvarus deformities. No acute bony findings. IMPRESSION: Advanced medial compartment joint space loss bilaterally. Genu varusdeformities. Subchondral sclerosis. Small effusion on the right. Mildpatellofemoral arthrosis bilaterally. Electronically Signed and Authenticated by Bernard Del Cid MD 111:08 Richy Contreras MD X-RAY Final Result documented in this encounter Visit Diagnoses Diagnosis Chronic pain of right knee Chronic pain of right knee documented in this encounter Care Teams Ladle Filler Relationship Specialty Start Date End Date Yenifer Adamson MD [address] [facility] [place] [address] PCP - General Family Medicine 10/12/20 documented as of this encounter
--- OUTSIDE RECORDS SUMMARY | 2025-05-14 10:35 | XMS_ITS | Encounter Summary ---
Author Organization [facility] Address [address] [place] [address] Phone Care Team Providers Care Club Steward Name Role Phone Yenifer Adamson MD Primary Care Provider Reason for Referral * Consultation - Complete Specialty Diagnoses / Procedures Referred By Yvonne ponce Referred To Contact Diagnoses Status post total knee replacement, right Procedures AMB CONSULT EXTERNAL PHYSICAL THERAPY PROVIDER Richy Contreras MD [address] [place] [address] Phone: tel: fax: [facility] [address] [address] Phone: tel: fax: Referral ID Status Reason Start Date Expiration Date V isits Requested Visits Authorized [id number] Complete 02/03/2022 1 1 Encounter Details Date Type Department Care Team ([facility] st Contact Info) Description 02/02/2022 Telephone [facility] Total Joint [place] [facility] [address] [place] [address] Richy Contreras MD [address] [place] [address] Social History Tobacco Use Types [...] encounter Miscellaneous Notes * Telephone Encounter - Bharti Saunders RN - 02/04/2022 9:29 AM CDT Spoke with pt. And answered all questions. Pt. Appreciative. Ayo 02/04 * Telephone Encounter - Vinh Brown - 02/04/2022 8:45 AM CDT Spoke w/ patient. We are able to set his pre-op appt for surgery, however, he had several additional questions for a nurse. Can someone please call him ADIA? Thanks! * Telephone Encounter - Cassy Kim RN - 02/03/2022 2:39 PM CDT Routing to Dr Ben LOPEZ Routing to [facility] to reschedule appointment related to surgery. Patient calls to accept 03/01 surgery date. Reviewed medication instructions with patient including: Hold Xarelto 72 hours prior to surgery. Hold ASA 7 days prior to surgery. Patient reports that he still has his Lovenox injections with written instructions and will call the prescribing provider with any questions. New PT consult with updated surgery date faxed to [facility] per pt request. Confirmation received. Patient prefers to reschedule pre op physical at PCP office. * Telephone Encounter - Cassy Kim RN - 02/03/2022 10:28 AM CDT Contacted patient, offered March 01 date. Patient is a tentative yes, but needs to double check with his . He will call back by the end of the day today. * Telephone Encounter - Richy Contreras MD - 02/03/2022 10:05 AM CDT We just had a cancellation for March 01 in this would be perfect for the patient to be moved into the slot. He will unfortunately almost certainly need the preop physical repeated. Please call thepatient and confirm that he accepts the date * Telephone Encounter - Cassy Kim RN - 02/03/2022 8:53 AM CDT Patient is agreeable to a date in late April and would also like to be put on the wait list. * Telephone Encounter - Richy Contreras MD - 02/03/2022 7:57 AM CDT Cardiac clearance noted. He was scheduled for this week. What does the patient want? To be put backon the schedule ADIA? Or get a set date in April? * Telephone Encounter - Moriah Staton RN - 02/02/2022 4:10 PM CDT Images from the original note were not included. Fax received & uploaded: Dr Contreras, please see above. I believe patient's already on your cancellation list. GUTIERREZ, RN documented in this encounter Plan of Treatment Not on file documented as of this encounter Visit Diagnoses Diagnosis Status post total knee replacement, right- Primary documented in this encounter Care Teams Club Steward Relationship Specialty Start Date End Date Yenifer Adamson MD [address] [place] [address] PCP - General Family Medicine 10/12/20 documented as of this encounter
--- OUTSIDE RECORDS SUMMARY | 2025-05-14 10:35 | XMS_ITS | Encounter Summary ---
Author Organization [facility] Address [address] [place] [address] Phone Care Team Providers Care Supercharge Repair Supervisor Name Role Phone Yenifer Adamson MD Primary Care Provider Encounter Details Date Type Department Care Team (Late st Contact Info) Description 02/18/2022 Scanned Document Non [facility] Referring Docs Provider, Outside Social History Tobacco Use Types Packs/Day Years [...] on filedocumented in this encounter Care Teams Supercharge Repair Supervisor Relationship Specialty Start Date End Date Yenifer Adamson MD [address] [place] [address] PCP - General Family Medicine 10/12/20 documented as of this encounter
--- OUTSIDE RECORDS SUMMARY | 2025-05-14 10:35 | XMS_ITS | Encounter Summary ---
Author Organization [facility] Address [address] [place] [address] Phone Care Team Providers Care Band Tacker Name Role Phone Yenifer Adamson MD Primary Care Provider Reason for Referral * - Closed Specialty Diagnoses / Procedures Referred By Yvonne ponce Referred To Contact Diagnoses Status post total knee replacement, left Procedures XR KNEE LEFT AP / LAT Richy Butler MD [address] [place] [address] Phone: tel: fax: Referral ID Status Reason Start Date Expiration Date Visits Re quested Visits Authorized [id number] Closed 10/23/2020 10/23/2021 1 1 * - Closed Specialty Diagnoses / Procedures Referred By Yvonne ponce Referred To Contact Diagnoses Status post total knee replacement, left Procedures XR KNEE LEFT AP / LAT Richy Butler MD [address] [place] [address] Phone: tel: fax: Referral ID Status Reason Start Date Expiration Date Visits Re quested Visits Authorized [id number] Closed 10/23/2020 10/23/2021 1 1 Reason for Visit * Reason Onset Date Comments Appointment Request 10/23/2020 Encounter Details Date Type Department Care Team ([facility] st Contact Info) Description 10/23/2020 Telephone [facility] Total Joint [facility] [address] [place] [address] Richy Butler MD [address] [place], [place] [phone] Appointment Request Social History Tobacco Use Types Packs/Day [...] encounter Miscellaneous Notes * Telephone Encounter - Mattie Duran - 10/23/2020 11:20 AM CDT X-ray scheduled per protocol documented in this encounter Plan of Treatment Not on file documented as of this encounter Results * XR KNEE LEFT AP / LAT (03/25/2021 12:48 PM CDT) Anatomical Region Laterality Modality Knee Left Digital Radiogra phy 03/25/2021 12:4 1 PM CDT Narrative 03/25/2021 10:34 PM CDT Accession Exam Completed Date/Time [id number] XR KNEE LEFT AP / LAT 03/25/2021 12:48 Requesting: RICHY BUTLER PROVIDED REASON FOR STUDY:STATUS POST TOTAL KNEE REPLACEMENT LEFT SYMPTOMS: left TRK DOS: 01/27/21, patient stated no pain COMPARISON:February 12, 2020 FINDINGS: 2 views left knee. Total left knee arthroplasty. Intact components. No periprosthetic lucencies or fractures. No acute bony findings. Soft tissue swelling anteriorly. IMPRESSION: Stable total left knee arthroplasty. Electronically Signed and Authenticated by Bernard Del Cid MD 03/25/2021 22:34 Procedure Note Bernard Del Cid MD - 03/25/2021 Accession Exam CompletedDate/Time [id number] XR KNEE LEFT AP / LAT 112:48 Requesting: RICHY BUTLER PROVIDED REASON FOR STUDY:STATUS POST TOTAL KNEE REPLACEMENT LEFT SYMPTOMS: left TRK DOS: 01/27/21, patient stated no pain COMPARISON:February 12, 2020 FINDINGS: 2 views left knee. Total left knee arthroplasty. Intact components. Noperiprosthetic lucencies or fractures. No acute bony findings. Soft tissueswelling anteriorly. IMPRESSION: Stable total left knee arthroplasty. Electronically Signed and Authenticated by Bernard Del Cid MD 122:34 Richy Butler MD PORTABLE X-RAY Final Result * XR KNEE LEFT AP / LAT (02/11/2021 1:10 PM CDT) Anatomical Region Laterality Modality Knee Left Digital Radiogra phy 02/11/2021 1:00 PM CDT Narrative 02/11/2021 5:01 PM CDT Accession Exam Completed Date/Time [id number] XR KNEE LEFT AP / LAT 02/11/2021 13:10 Requesting: RICHY BUTLER PROVIDED REASON FOR STUDY:STATUS POST TOTAL KNEE REPLACEMENT LEFT SYMPTOMS: Pt sts L knee replacement 01/27, sore and tightness COMPARISON:January 27, 2021 FINDINGS: 2 views left knee. Total left knee arthroplasty. Skin ben have been removed. Intact components. No periprosthetic lucencies or fractures. No acute findings. IMPRESSION: Stable left knee arthroplasty. Electronically Signed and Authenticated by Bernard Del Cid MD 02/11/2021 17:01 Procedure Note Bernard Del Cid MD - 02/11/2021 Accession Exam CompletedDate/Time [id number] XR KNEE LEFT AP / LAT 113:10 Requesting: RICHY BUTLER PROVIDED REASON FOR STUDY:STATUS POST TOTAL KNEE REPLACEMENT LEFT SYMPTOMS: Pt sts L knee replacement 01/27, sore and tightness COMPARISON:January 27, 2021 FINDINGS: 2 views left knee. Total left knee arthroplasty. Skin ben have beenremoved. Intact components. No periprosthetic lucencies or fractures. Noacute findings. IMPRESSION: Stable left knee arthroplasty. Electronically Signed and Authenticated by Bernrad Del Cid MD 117:01 us Richy Butler MD PORTABLE X-RAY Final Result documented in this encounter Visit Diagnoses Diagnosis Status post total knee replacement, left- Primary Status post total knee replacement, left Status post total knee replacement, left documented in this encounter Care Teams Band Tacker Relationship Specialty Start Date End Date Yenifer Adamson MD [address] [place] [address] PCP - General Family Medicine 10/12/20 documented as of this encounter
--- OUTSIDE RECORDS SUMMARY | 2025-05-14 10:35 | XMS_ITS | Encounter Summary ---
Author Organization [facility] Address [address] [place] [address] Phone Care Team Providers Care Toy Painter Name Role Phone Yenifer Adamson MD Primary Care Provider Encounter Details Date Type Department Care Team ([facility] st Contact Info) Description 10/12/2020 Telephone [facility] [address], [place] [phone] Richy Contreras MD [address] [place], [place] [phone] Social History Tobacco Use Types Packs/Day Years Used Date Smoking Tobacco: Never Assessed Sex and Gender Information Value Date Recorded Sex Assigned at Not on file Legal Sex Male 12:17 PM CDT Gender Identity Not on file Sexual Orientation Not on file documented as of this encounter Plan of Treatment Not on file documented as of this encounter Visit Diagnoses Diagnosis Chronic pain of right knee- Primary documented in this encounter Care Teams Toy Painter Relationship Specialty Start Date End Date Yenifer Adamson MD [address] [facility] [place] [address] PCP - General Family Medicine 10/12/20 documented as of this encounter
--- OUTSIDE RECORDS SUMMARY | 2025-05-14 10:35 | XMS_ITS | Encounter Summary ---
Author Organization [facility] Address [address] [place] [address] Phone Care Team Providers Care Signaling Project Engineer Name Role Phone Yenifer Adamson MD Primary Care Provider Reason for Referral * Consultation - Complete Specialty Diagnoses / Procedures Referred By Yvonne ponce Referred To Contact Diagnoses Chronic pain of right knee Osteoarthritis of both knees, unspecified osteoarthritis type Procedures [facility] Non [place] Referring Richy Black MD [address] [place] [address] Phone: tel: fax: Referral ID Status Reason Start Date Expiration Date V isits Requested Visits Authorized [id number] Complete 10/07/2020 1 1 Encounter Details Date Type Department Care Team (Latest Contact Info) Description 10/07/2020 Transcribe Orders Non Luis Referring Maryse Provider, Unknown Chronic pain of right knee (Primary Dx); Osteoarthritis of both knees, unspecified osteoarthritis type Social History Tobacco Use Types Packs/Day Years [...] Diagnosis Chronic pain of right knee- Primary Osteoarthritis of both knees, unspecified osteoarthritis type documented in this encounter Care Teams Signaling Project Engineer Relationship Specialty Start Date End Date Yenifer Adamson MD [address] [place] [address] PCP - General Family Medicine 10/12/20 documented as of this encounter
--- OUTSIDE RECORDS SUMMARY | 2025-05-14 10:35 | XMS_ITS | Encounter Summary ---
Author Organization [facility] Address [address] [place] [address] Phone Care Team Providers Care Interpersonal Communications Professor Name Role Phone Yenifer Adamson MD Primary Care Provider Reason for Visit * Reason Onset Date Comments Referral 10/08/2020 Osteoarthritis o f both knees-pain in right knee Encounter Details Date Type Department Care Team (Late st Contact Info) Description 10/08/2020 Telephone [facility] Total Joint [facility] [address] [place], [place] [phone] Identified, No Provider Referral (Osteoarthritis of both knees-pain in right knee) Social History Tobacco Use Types Packs/Day Years Used Date Smoking Tobacco: Never Assessed Sex and Gender Information Value Date Recorded Sex Assigned at Not on file Legal Sex Male 12:17 PM CDT Gender Identity Not on file Sexual Orientation Not on file documented as of this encounter Miscellaneous Notes * Telephone Encounter - Adela King RN - 10/30/2020 3:47 PM CDT Release of Information packet received from [facility] from the Office of Dr Jackson in [place], [place]. Copy sent to HIM and original placed in [facility] office to review---routing as FYI only DOS scheduled for 01/27/21 for Left TKA. * Telephone Encounter - Yasmine Franklin - 10/12/2020 3:56 PM CDT Checked appointment desk and appointment has been scheduled on 10/[address] Kawakita. Notes placed in Green Folder appropriately. HLB 10/12/20 * Telephone Encounter - Yasmine Franklin - 10/08/2020 8:13 AM CDT External referral paperwork received from [facility] Team date: 10/08 for Osteoarthritis of both knees-pain in right knee Two copies were printed. One copy was placed in external basket to be placed in Green Folder when appointment is scheduled. Other copy sent to HIM for scanning into patient's chart. [facility]B 10/08/20 documented in this encounter Plan of Treatment Not on file documented as of this encounter Visit Diagnoses Not on filedocumented in this encounter Care Teams Interpersonal Communications Professor Relationship Specialty Start Date End Date Yenifer Adamson MD [address] [place] [address] PCP - General Family Medicine 10/12/20 documented as of this encounter
--- OUTSIDE RECORDS SUMMARY | 2025-05-14 10:35 | XMS_ITS | Clinical Summary ---
Author Organization [facility] Address [address] [place] [address] Care Team Providers Care Ticket Taker Name Role Phone Yenifer Adamson MD Primary Care Provider Allergies No known active allergies Medications aspirin (ECOTRIN EC) 81 mg Tablet, Delayed Release (E.C.) Take 81 mg by mouth daily. Active cyanocobalamin 1,000 mcg Tablet Take 1,000 mcg by mouth daily. Active furosemide (LASIX) 40 mg tablet Take 40 mg by mouth daily. Active potassium chloride (KLOR-CON) 20 mEq Extended Release tablet Take 20 mEq by mouth daily. Active Breztri Aerosphere 160 mcg-9mcg-4.8mcg /actuation HFA aerosol inhaler Take 2 Puffs by inhalation 2 times daily. 4 Active rivaroxaban (Xarelto) 20 mg TabletIndicatio ns:Acute saddle pulmonary embolism without acute cor pulmonale (CMS/HCC),Acute deep vein thrombosis (DVT) of proximal vein of right lower extremity TAKE ONE (1) TABLET BY MOUTH EVERY DAY WITH SUPPER 90 Tablet 1 5 Active famotidine (PEPCID) 40 mg tablet Take 40 mg by mouth daily. 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 Acute pulmonary embolism 11/13/2018 Acute deep vein thrombosis ( DVT) of proximal vein of right lower extremity 11/13/2018 Encounters Date Type Department Care Team Description 05/14/2025 10:00 AM CDT Office Visit [facility] - [place] [address] [place] [phone] Nixon Jacobs MD Arrived 05/13/2025 Orders Only [facility] - [place] [address] [place] [address] Nixon Jacobs MD Acute saddle pulmonary embolism without acute cor pulmonale (CMS/HCC) (Primary Dx) 03/18/2025 External Device Data STL ABSTRACTION Provider, Abstract 03/04/2025 External Device Data STL ABSTRACTION Provider, Abstract from Last 3 Months Family History Medical History Relation Name Comments No Known Problems Brother 1 No Known Problems Brother 2 Heart Disease Father Cancer Mother No Known Problems Sister Relation Name Status Comments Brother 1 Alive Brother 2 Alive Father Mother Sister Alive Social History Tobacco Use Types Packs/Day Years [...] on file Sexual Orientation Not on file Last Filed Vital Signs Vital Sign Reading Time Taken Comments Blood Pressure 125/86 05/14/2025 10:09 AM CDT Pulse 67 05/14/2025 10:09 AM CDT Temperature 36.7 C (98 F) 05/14/2025 10:09 AM CDT Respiratory Rate 16 05/14/2025 10:09 AM CDT Oxygen Saturation 95% 05/14/2025 10:09 AM CDT Inhaled Oxygen Concentration - - Weight 129.3 kg (285 lb) 05/14/2025 10:09 AM CDT Height 185.4 cm (6' 1) 05/12/2022 8:20 AM CDT Body Mass Index 37.6 05/12/2022 8:20 AM CDT Plan of Treatment Health Maintenance Due Date Last Done Comments PNEUMOCOCCAL VACCINE 50+ YEA RS (1 of 2 - PCV) 1970 Traditional Medicare (ACO) A nnual Wellness Visit 1970 FIT-DNA Q 3 years 01/29/1996 FIT/FOBT Q 1 year 01/29/1996 Flex Sig/CT Colonography Q 5 years 01/29/1996 RSV VACCINE (60+ or ) (1 - Risk 50-74 years 1-dose series) 2001 ZOSTER VACCINE (1 of 2) 2001 INFLUENZA VACCINE (#1) 2025 COVID-19 Vaccine (3 - season) 03/17/202512/2020, 08/22/2020 COLORECTAL SCREENING 03/29/2029 03/29/2019 Colorectal Cancer Screening 03/29/2029 DTAP/TDAP/TD VACCINES (2 - Td or Tdap) 04/23/2035 Insurance MEDICARE PART A AND B [employer] MEDICARE PART A AND B [employer]ANCE [employer] Care Teams Ticket Taker Relationship Specialty Start Date End Date Yenifer Adamson MD [address] [place] [address] PCP - General Family Practice 11/08/18
--- OUTSIDE RECORDS SUMMARY | 2025-05-14 10:35 | XMS_ITS | Encounter Summary ---
Author Organization [facility] Care Team Providers Care Trauma Coordinator Name Role Phone Yenifer Adamson MD Primary Care Provider Yenifer Adamson MD Primary Care Provider Encounter Details Date Type Department Care Team (Latest Contact Info) Description 08/05/2016 Orders Only [facility] ProviderVickie MD [address] [place] [address] Social History Tobacco Use Types Packs/Day Years Used Date Smoking Tobacco: Never Assessed Sex and Gender Information Value Date Recorded Sex Assigned at Not on file Legal Sex Male 9:08 AM LEAD MEDICAL TECHNOLOGIST Gender Identity Not on file Sexual Orientation Not on file documented as of this encounter Plan of Treatment Not on file documented as of this encounter Procedures Procedure Name Priority Date/Time Associated Diagnosis Comments SCAN - LABS 08/05/2016 12:00 AM LEAD MEDICAL TECHNOLOGIST documented in this encounter Results * SCAN - LABS (08/05/2016 12:00 AM LEAD MEDICAL TECHNOLOGIST) Narrative 08/05/2016 12:00 AM LEAD MEDICAL TECHNOLOGIST Ordered by an unspecified provider. us Historical Provider Final Res ult documented in this encounter Visit Diagnoses Not on filedocumented in this encounter Care Teams Trauma Coordinator Relationship Specialty Start Date End Date Yenifer Adamson MD [address] [place] [address] PCP - General 09/01/16 10/05/18 Yenifer Adamson MD [address] [place] [address] PCP - General Family Medicine 10/06/18 documented as of this encounter
--- OUTSIDE RECORDS SUMMARY | 2025-05-14 10:36 | XMS_ITS | Encounter Summary ---
Author Organization [facility] Address [address] [place] [address] Phone Care Team Providers Care Official Court Interpreter Name Role Phone Yenifer Adamson MD Primary Care Provider Encounter Details Date Type Department Care Team ([facility] st Contact Info) Description 10/23/2020 Telephone [facility] Total Joint [facility] [address] [place] [address] Richy Contreras MD [address] [place], [place] [phone] Social History Tobacco Use Types Packs/Day Years [...] encounter Miscellaneous Notes * Telephone Encounter - Francia Londno RN - 10/27/2020 1:46 PM CDT Pt returned call to nurse and was advised of below information related to holding ASA 7 days preop and Xarelto 48 hours preop. Pt repeats back understanding and agrees to plan. No further questions at this time. Information is updated in [facility] book for surgery planned for 01/27/21. TAB / * Telephone Encounter - Idris Christensen RN - 10/27/2020 12:27 PM CDT Attempted to contact patient to inform of ASA and Xarelto holding instructions per Dr. Jacobs. LVM with call back number. REANNA FLOREZ * Telephone Encounter - Richy Contreras MD - 10/26/2020 1:14 PM CDT Recommended blood thinner holds are fine * Telephone Encounter - Idris Christensen RN - 10/26/2020 9:03 AM CDT Images from the original note were not included. Routing to Dr. Contreras: Please review and advise, ASA and Xarelto holding instructions. Please advise if okay with holding instructions for ASA and Xarelto per Dr. Jacobs. ASA hold for seven days, Xarelto hold for 48 hours prior to surgery. May resume as early as 24 hours after surgery per surgeon discretion per below scanned documentation. REANNA FLOREZ - History of DVT Original document was placed in the to be scanned bin. * Telephone Encounter - Idris Christensen RN - 10/23/2020 12:02 PM CDT Nursing- Currently awaiting holding advisement for Xarelto and ASA as patient has a history of a DVT. Communication letter has been faxed. REANNA FLOREZ Called and spoke with legal secretary receptionist with [facility] in [place], [place]. Patient follows with Dr. Jacobs (oncology/hematology) for history of a DVT. He is currently on Xarelto 20 mg daily and ASA 81 mg. Office was accepting for a communication letter to be sent with an outline for need for holding instructions. Letter has been faxed and fax confirmation has been received. Dr. Jacobs's office (phone): [phone] option #1 Dr. Jacobs's office (fax): [phone] documented in this encounter Plan of Treatment Not on file documented as of this encounter Visit Diagnoses Not on filedocumented in this encounter Care Teams Official Court Interpreter Relationship Specialty Start Date End Date Yenifer Adamson MD [address] [place] [address] PCP - General Family Medicine 10/12/20 documented as of this encounter
--- OUTSIDE RECORDS SUMMARY | 2025-05-14 10:36 | XMS_ITS | Encounter Summary ---
Author Organization [facility] Address [address] [place] [address] Phone Care Team Providers Care County Coroner Name Role Phone Yenifer Adamson MD Primary Care Provider Encounter Details Date Type Department Care Team (Late st Contact Info) Description 10/19/2021 Scanned Document Non [facility] Referring Docs Provider, Outside Social History [...] suspected to have Coronavirus/COVID-19? No / Unsure 10/08/2021 2:49 PM CDT documented as of this encounter Plan of Treatment Not on file documented as of this encounter Visit Diagnoses Not on filedocumented in this encounter Care Teams County Coroner Relationship Specialty Start Date End Date Yenifer Adamson MD [address] [place] [address] PCP - General Family Medicine 10/12/20 documented as of this encounter
--- OUTSIDE RECORDS SUMMARY | 2025-05-14 10:36 | XMS_ITS | Encounter Summary ---
Author Organization [facility] Address [address] [place] [address] Phone Care Team Providers Care Herb Counselor Name Role Phone Yenifer Adamson MD Primary Care Provider Encounter Details Date Type Department Care Team (Latest Contact Info) Description 01/06/2021 Transcribe Orders Non [facility] Referring Docs Yenifer Adamson MD [address] [place] [address] Preop examination; SOB (shortness of breath) Social History Tobacco Use Types Packs/Day Years [...] have Coronavirus / COVID-19? No / Unsure 01/06/2021 10:57 AM CDT documented as of this encounter Plan of Treatment Not on file documented as of this encounter Visit Diagnoses Diagnosis Preop examination Preoperative examination, unspecified SOB (shortness of breath) Shortness of breath documented in this encounter Care Teams Herb Counselor Relationship Specialty Start Date End Date Yenifer Adamson MD [address] [place], [place] [id number] PCP - General Family Medicine 10/12/20 documented as of this encounter
--- OUTSIDE RECORDS SUMMARY | 2025-05-14 10:36 | XMS_ITS | Clinical Summary ---
Author Organization [facility] Address [address] [place] [address] Care Team Providers Care Quality Control Associate Name Role Phone Yenifer Adamson MD Primary Care Provider Allergies No known active allergies Medications rivaroxaban (XARELTO) 20 mg tablet 1 tablet (20 mg total) daily Hold 24 hour prior to procedure per MD office Active cyanocobalamin (Vitamin B-12) 100 mcg tablet Rx: Vitamin B-12 Active furosemide (LASIX) 40 mg tablet 019 Active aspirin 81 mg enteric coated tabletIndication s:one time in the AM Take 1 tablet (81 mg total) by mouth daily Active donepeziL (ARICEPT) 5 mg tablet Take 1 tablet (5 mg total) by mouth nightly. (COURTESY REFILL, PATIENT NEEDS A FOLLOW UP FOR FURTHER REFILLS) 30 tablet 3 023 Active ipratropium-albu teroL (DUO-NEB) 0.5-2.5 mg/3 mL nebulizer solutionIndicati ons:Chronic Obstructive Pulmonary Disease with Bronchospasms Take 3 mL by nebulization every 6 (six) hours as needed for wheezing or shortness of breath 360 mL 3 024 Active Additional Information Patient not taking.Reported on 03/26/2025 doxepin 3 mg tablet 024 Active tamsulosin (FLOMAX) 0.4 mg extended release capsule 024 Active albuterol HFA (ProAir HFA) 90 mcg/actuation inhalerIndicatio ns:Severe persistent asthma without complication (HCC) Inhale 2 puffs every 6 (six) hours as needed (coughing, wheezing, shortness of breath, or chest congestion.) 8.5 g 5 Active Additional Information Patient not taking.Reported on 03/26/2025 inhaler,assist devices,access deviceIndication s:Simple chronic bronchitis (HCC),Severe persistent asthma without complication (HCC) 1 Device as needed (with inhalers) 1 each Active Additional Information Patient not taking.Reported on 03/26/2025 zinc gluconate 50 mg tablet Take 1 tablet (50 mg total) by mouth daily Active metFORMIN (GLUCOPHAGE) 500 mg tablet Take 1 tablet (500 mg total) by mouth 2 (two) times a day with meals Active ascorbic acid (ascorbic acid with erin hips) 500 mg tablet,chewable Acti ve famotidine (PEPCID) 40 mg tablet Active finasteride (PROSCAR) 5 mg tablet Active spironolactone (ALDACTONE) 25 mg tablet daily 025 Active Breztri Aerosphere 160-9-4.8 mcg/actuation inhaler INHALE 2 PUFFS 2 (TWO) TIMES A DAY RINSE MOUTH WITH WATER AFTER USE. APPOINTMENT NEEDED 10.7 g 1 025 Active POTASSIUM CHLORIDE ER 20 mEq CR tablet 019 2024 Discontinued(P atient Reported) moxifloxacin (VIGAMOX) 0.5 % ophthalmic solution 022 2024 Discontinued(P atient Reported) prednisoLONE acetate (PRED FORTE) 1 % ophthalmic suspension 022 2024 Discontinued(P atient Reported) pantoprazole DR (PROTONIX) 40 mg EC tablet 022 2024 Discontinued(P atient Reported) budesonide-glyco pyr-formoterol 160-9-4.8 mcg/actuation HFA aerosol inhaler Inhale 2 puffs 2 (two) times a day 1 each 11 024 2024 Discontinued(D uplicate order) montelukast (SINGULAIR) 10 mg tabletIndication s:Severe persistent asthma without complication (HCC) Take 1 tablet (10 mg total) by mouth nightly 90 tablet 1 024 2024 Discontinued(P atient Reported) budesonide-glyco pyr-formoterol (BREZTRI) 160-9-4.8 mcg/actuation inhaler Inhale 2 puffs 2 (two) times a day 1 each 11 025 2024 Discontinued Breztri Aerosphere 160-9-4.8 mcg/actuation inhaler INHALE 2 PUFFS 2 (TWO) TIMES A DAY RINSE MOUTH WITH WATER AFTER USE. APPOINTMENT NEEDED 10.7 g 1 025 2024 Discontinued(D uplicate order) Active Problems Problem Noted Date Diagnosed Date Severe persistent asthma without complication Pulmonary nodule 08/31/2023 Abnormal PFT 07/27/2023 Chronic obstructive pulmonary disease, unspecifi ed 04/20/2023 Diastolic congestive heart failure 10/13/2022 SOB (shortness of breath) 10/13/2022 Class 2 obesity in adult 04/15/2022 Abnormal stress test 2022 Overview (2022): Added automatically from request for surgery [id number] Pre-op testing 2022 Overview (2022): Added automatically from request for surgery [id number] Bilateral leg numbness 10/14/2021 Assessment & Plan (10/14/2021 11:05 AM CDT): I received the EMG report from the outside physician. 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 The lower extremities were not studied. Thus, we will obtain an EMG of the bilateral lower extremities. Cervical stenosis of spinal canal 10/13/2021 Assessment & Plan (10/13/2021 1:41 PM CDT): The patient has significant canal stenosis on the cervical spine. That being said, he has no cord signal change. He does appear to be slightly hyper-reflexic or least have brisk reflexes. He does not, however, have a Babinski or clonus at the ankles. Thus, I do not believe there is any type of an urgent need to intervene, but that being said of going to send him to physical therapy. I will send him locally to have therapy done. I will see him back in about 2 months. Memory loss 10/13/2021 Assessment & Plan (12/22/2021 2:55 PM CDT): The patient had neuro psychological testing. It does not show evidence of a neuro degenerative condition. Rather, it appears consists of a subcortical etiology for his memory deficits. He does have a history of a concussion in 2013 as well as COVID which likely account for his symptoms. We discussed today an empiric trial of Aricept 5 mg daily. He is going to try for a few weeks and let me know if he notices any improvement. If he does, I would continue him on that dose. I will see him back p.r.n. Assessment & Plan (10/13/2021 1:40 PM CDT): Patient is a 71-year-old gentleman with complaints of memory loss. On my examination today he scored perfectly on the MMSE. That being said, it may be because of his high level of Education that he may have a cognitive deficit and it is something that will be picked up on a casual screening tool in the office. I recommended we obtain neuro psychological testing. I am also going to do blood work. I did review the patient's brain MRI. He has minimal vascular disease. He does not have atrophy out of context for his age. 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 He is aware of this. He already has a surgeon needs discussing possible carpal tunnel release surgery with. Arthritis of carpometacarpal (CMC) joint of righ t thumb 11/21/2018 Acute deep vein thrombosis ( DVT) of proximal vein of right lower extremity 11/13/2018 Acute pulmonary embolism 11/13/2018 Primary osteoarthritis of both knees 10/19/2018 Other enthesopathy of unspecified foot 7 Overview (12/11/2018): Subfibular Pes planovalgus, acquired 04/13/2017 Short Achilles tendon (acquired), right ankle Ankle pain 08/26/2016 Pain of foot 08/26/2016 Arthritis of foot, degenerative 08/26/2016 Overview (12/11/2018): Subtalar Ankle swelling 08/26/2016 Primary osteoarthritis of ankle 08/26/2016 Gout 08/05/2016 Irregular heartbeat Encounters Date Type Department Care Team Description 04/30/2025 [facility] [address] [place] [address] [place] [phone] Lena Sanchez MA 04/29/2025 9:45 AM CDT Office Visit [facility] [address] [place] [phone] Joey Bentley MD Simple chronic bronchitis (HCC) (Primary Dx); Severe persistent asthma without complication (HCC) 04/20/2025 10:01 AM CDT - 04/20/2025 11:59 PM CDT Hospital Encounter [facility] [address] [place] [phone] Memory loss Discharge Disposition: Discharge to home or self care 03/27/2025 [facility] [address] [place] [address] [place] [phone] Jagdish Garcia MD 03/26/2025 9:40 AM CDT Lab [address] [place] [phone] Memory loss 03/26/2025 9:00 AM CDT [facility] [address] [place] [address] [place] [phone] Jagdish Garcia MD Memory loss (Primary Dx) 03/26/2025 Results [facility] [address] [phone] Jagdish Garcia MD CBC with auto differential, Differential, auto, Comprehensive metabolic panel, Additional followed-up results: 3 from Last 3 Months Surgical History Surgery Date Site/Laterality Comments KNEE ARTHROSCOPY 07/17/1979 - 07/16/1980 CARPAL TUNNEL RELEASE 09/15/2019 - 10/15/2019 TOTAL KNEE ARTHROPLASTY 01/27/2021 Left REPLACEMENT TOTAL KNEE Left January 2021 TENDON REPAIR 04/23/2025 Left Hand, required 7 stitches Medical History Medical History Date Comments Osteoarthritis OA of knees and ankles Irregular heartbeat Blood clot in vein Rosacea Family History Medical History Relation Name Comments Hypertension Brother Family history of hypertension - (Added by TW Conv) Arthritis Father Family history of arthritis - (Added by TW Conv) Heart disease Father Family history of cardiac disorder - (Added by TW Conv) Cancer Mother Family history of malignant neoplasm - (Added by TW Conv) Relation Name Status Comments Brother Father Mother Social History Tobacco Use Types Packs/Day Years Used Date Smoking Tobacco: Never Smokeless Tobacco: Never Tobacco Cessation:Counseling Given: Not Answered Alcohol Use Standard Drinks/Week Comments Yes 0 (1 standard drink = 0.6 oz pur e alcohol) AUDIT-C Answer Date Recorded Q1: How often do you have a drink containing alc ohol? Monthly or less 02/01/2022 Q2: How many drinks containi ng alcohol do you have on a typical day when you are drinking? 1 or 2 02/01/2022 Q3: How often do you have si x or more drinks on one occasion? 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 Not on file Not on file Not on file Obstetrics History Last Filed Vital Signs Vital Sign Reading Time Taken Comments Blood Pressure 111/71 04/29/2025 9:35 AM CDT Pulse 57 04/29/2025 9:35 AM CDT Temperature 36.1 C (96.9 F) 04/29/2025 9:35 AM CDT Respiratory Rate 18 04/29/2025 9:35 AM CDT Oxygen Saturation 96% 04/29/2025 9:35 AM CDT Inhaled Oxygen Concentration - - Weight 128.8 kg (284 lb) 04/29/2025 9:35 AM CDT Height 185.4 cm (6' 1) 04/29/2025 9:35 AM CDT Body Mass Index 37.47 04/29/2025 9:35 AM CDT Plan of Treatment Health Maintenance Due Date Last Done Comments Colon Cancer Screening-Colonoscopy 1950 Depression Screening 1950 Hepatitis C Screening 1950 Hepatitis B Screening 1969 Well Visit 65+ 01/29/2016 Zoster Vaccine (2 of 3) 07/21/2020 05/26/20 20, 04/02/2020, 05/30/2015 Fall Risk Assessment 02/01/2023 02/01/2022 Covid-19 Vaccine (4 - 2024-2 6 season) 2025 07/02/2021, 09/19/2020, 08/22/2020 DTaP/Tdap/Td Vaccine (3 - Td or Tdap) 10/31/2030 10/31/2020, 11/26/2015 Pneumococcal vaccine 65+ Completed 07/27/2017, 05/17 Influenza Vaccine Completed 04/28/2025, , 05/30/2018, Additional history exists Procedures Procedure Name Priority Date/Time Associated Diagnosis Comments MRI BRAIN COGNITIVE IMPAIRMENT WO CONTRAST Schedule Routine, Read Routine (OP Routine) 04/20/2025 11:27 AM CDT Memory loss DIFFERENTIAL AUTO Routine 03/26/2025 12: 15 PM CDT Memory loss CBC WITH AUTO DIFFERENTIAL Routine 03/26/2025 12:15 PM CDT Memory loss EGFR Routine 03/26/2025 12:14 PM CDT Memory loss VITAMIN B12 Routine 03/26/2025 12:14 PM CDT Memory loss THYROID FUNCTION CASCADE Routine 03/26/2025 12:14 PM CDT Memory loss COMPREHENSIVE METABOLIC PANEL Routine 03/26/2025 12:14 PM CDT Memory loss from Last 3 Months Results * MRI Brain Cognitive Impairment WO Contrast (04/20/2025 11:27 AM CDT) Anatomical Region Laterality Modality Head and Neck N/A Magnetic Resonan ce 04/21/2025 9:06 AM CDT Impressions 04/21/2025 9:21 AM CDT 1. Asymmetric, significant left hippocampal and left temporal sánchez matter volume loss compared to age and gender matched controls. Nonspecific, but hippocampal volume loss can be seen in Alzheimer's disease. 2. Total cerebral microhemorrhages: 0-4. New/incident cerebral microhemorrhages: 0-4. 3. Superficial siderosis is not detected. 4. Mild nonspecific white matter hyperintensities are slightly progressed from prior MRI and commonly sequela of chronic microvascular ischemic disease. Dictated by: Bao Davenport M.D. The radiology attending physician has personally reviewed this study, and had reviewed and/or edited this written report and agrees with it. Electronically signed by: Josie Watts M.D. Narrative 04/21/2025 9:21 AM CDT EXAMINATION: Magnetic resonance imaging (MRI) of the brain and brainstem without contrast HISTORY: 75 year old male with chronic microvascular changes who presents with worsening memory loss. He has experienced a progressive decline in memory over the past year TECHNIQUE: Multiplanar multi-weighted MRI of the brain and brainstem was performed without intravenous contrast using a protocol specific to assess patients with memory complaints. T1-weighted sagittal MPRage images of the brain were postprocessed on [employer] VIA to generate segmented brain volumes using commercial software. Results were compared to 10th and 90th percentiles of healthy age-/gender-matched population. Graphs were sent to IMASTE and Red Stamp PACS. The protocol specifically includes FLAIR to assess for potential infarcts and white matter lesions associated with vascular cognitive impairment and with susceptibility sensitive sequences for detection of cerebral microhemorrhages. COMPARISON: MRI 04/24/2021 FINDINGS: The scalp and calvarium are normal. The superior sagittal sinus demonstrates normal venous flow. The corpus callosum is normal in shape and signal intensity. The posterior fossa is unremarkable. The pituitary and sella are normal. The brainstem and craniocervical junction are unremarkable. Diffusion weighted images reveal no hyperintensities to suggest acute cerebral infarction. The susceptibility weighted sequences reveal no evidence of acute or chronic hemorrhage. The ventricles are normal in size and position without evidence of hydrocephalus. Mild mucosal thickening of the ethmoid air cells. Trace right mastoid fluid. The orbits appear normal. Normal flow voids are demonstrated in the carotid arteries and basilar artery. Narrowing of the cervical spinal canal secondary to congenitally short pedicles. Moderate canal stenosis of the visualized upper cervical levels. QUANTITATIVE ASSESSMENT: Quantitative assessment was performed using Mogreet and is reported. The left hippocampus and left temporal lobe sánchez matter volumes are below the 10th percentile QUALITATIVE ASSESSMENT: Small infarcts (< 15 mm): None. Infarcts (>15 mm): No. White matter hyperintensities (Fazekas grade): Mild/Fazekas 1: Multiple punctate lesions. Scattered punctate foci in the bilateral periventricular and subcortical white matter, slightly progressed from prior MRI in 2020. Prior cerebral microhemorrhages: Prior exam demonstrates 0 MCH. New/incident cerebral microhemorrhages: There are no new MCH. Total cerebral microhemorrhages: There are no MCH. Prior siderosis: no prior exam available for adequate comparison. New/incident siderosis: None. Procedure Note Josie Watts MD - 04/21/2025 EXAMINATION: Magnetic resonance imaging (MRI) of the brain and brainstem without contrast HISTORY: 75 year old male with chronic microvascular changes who presents with worsening memory loss. He has experienced a progressive decline in memory over the past year TECHNIQUE: Multiplanar multi-weighted MRI of the brain and brainstem was performed without intravenous contrast using a protocol specific to assess patients with memory complaints. T1-weighted sagittal MPRage images of the brain were postprocessed on [employer] to generate segmented brain volumes using commercial software. Results were compared to 10th and 90th percentiles of healthy age-/gender-matched population. Graphs were sent to IMASTE and Red Stamp PACS. The protocol specifically includes FLAIR to assess for potential infarcts and white matter lesions associated with vascular cognitive impairment and with susceptibility sensitive sequences for detection of cerebral microhemorrhages. COMPARISON: MRI 04/24/2021 FINDINGS: The scalp and calvarium are normal. The superior sagittal sinus demonstrates normal venous flow. The corpus callosum is normal in shape and signal intensity. The posterior fossa is unremarkable. The pituitary and sella are normal. The brainstem and craniocervical junction are unremarkable. Diffusion weighted images reveal no hyperintensities to suggest acute cerebral infarction. The susceptibility weighted sequences reveal no evidence of acute or chronic hemorrhage. The ventricles are normal in size and position without evidence of hydrocephalus. Mild mucosal thickening of the ethmoid air cells. Trace right mastoid fluid. The orbits appear normal. Normal flow voids are demonstrated in the carotid arteries and basilar artery. Narrowing of the cervical spinal canal secondary to congenitally short pedicles. Moderate canal stenosis of the visualized upper cervical levels. QUANTITATIVE ASSESSMENT: Quantitative assessment was performed using [employer] Via and is reported. The left hippocampus and left temporal lobe sánchez matter volumes are below the 10th percentile QUALITATIVE ASSESSMENT: Small infarcts (< 15 mm): None. Infarcts (>15 mm): No. White matter hyperintensities (Fazekas grade): Mild/Fazekas 1: Multiple punctate lesions. Scattered punctate foci in the bilateral periventricular and subcortical white matter, slightly progressed from prior MRI in 2020. Prior cerebral microhemorrhages: Prior exam demonstrates 0 MCH. New/incident cerebral microhemorrhages: There are no new MCH. Total cerebral microhemorrhages: There are no MCH. Prior siderosis: no prior exam available for adequate comparison. New/incident siderosis: None. IMPRESSION: 1. Asymmetric, significant left hippocampal and left temporal sánchez matter volume loss compared to age and gender matched controls. Nonspecific, but hippocampal volume loss can be seen in Alzheimer's disease. 2. Total cerebral microhemorrhages: 0-4. New/incident cerebral microhemorrhages: 0-4. 3. Superficial siderosis is not detected. 4. Mild nonspecific white matter hyperintensities are slightly progressed from prior MRI and commonly sequela of chronic microvascular ischemic disease. Dictated by: Bao Davenport M.D. The radiology attending physician has personally reviewed this study, and had reviewed and/or edited this written report and agrees with it. Electronically signed by: Josie Watts M.D. Jagdish Garcia MD [facility]EDURES Final R esult * (ABNORMAL) Differential, auto (03/26/2025 12:15 PM CDT) Neutrophil abs 4.67 1.50 - 6.50 K/cumm Imm gran abs 0.04 0.00 - 0.10 K/cumm [facility] Lymphocyte abs 1.61 0.80 - 3.30 K/cumm [facility] Monocyte abs 0.84(H) 0.20 - 0.80 K/cumm [facility] Eosinophil abs 0.15 0.00 - 0.50 K/cumm [facility] Basophil abs 0.03 0.00 - 0.10 K/cumm [facility] Neutrophil pct 63.8 % [facility] Comment: Interpretive Data Percent cell count reference ranges are not reported, since discordance with absolute values may lead to misinterpretation of CBC data. Current Interpretive Data was last revised on 2017. Imm gran pct 0.5 % [facility] Comment: Interpretive Data Percent cell count reference ranges are not reported, since discordance with absolute values may lead to misinterpretation of CBC data. Current Interpretive Data was last revised on 2017. Lymphocyte pct 21.9 % [facility] Comment: Interpretive Data Percent cell count reference ranges are not reported, since discordance with absolute values may lead to misinterpretation of CBC data. Current Interpretive Data was last revised on 2017. Monocyte pct 11.4 % [facility] Comment: Interpretive Data Percent cell count reference ranges are not reported, since discordance with absolute values may lead to misinterpretation of CBC data. Current Interpretive Data was last revised on 2017. Eosinophil pct 2.0 % [facility] Comment: Interpretive Data Percent cell count reference ranges are not reported, since discordance with absolute values may lead to misinterpretation of CBC data. Current Interpretive Data was last revised on 2017. Basophil pct 0.4 % [facility] Comment: Interpretive Data Percent cell count reference ranges are not reported, since discordance with absolute values may lead to misinterpretation of CBC data. Current Interpretive Data was last revised on 2017. Blood 03/26/2025 12:1 5 PM CDT 03/26/2025 12:15 PM CDT us Jagdish Garcia MD LAB BLOOD ORDERABLES Final Result Performing Organization Address [facility]/ZIP Co de Phone Number [facility] [address] Department [place] [address] * CBC with auto differential (03/26/2025 12:15 PM CDT) [facility] WBC 7.34 3.80 - 9.90 K/cumm Hgb 15.4 13.0 - 17.5 g/dL [facility] Hct 46.1 38.9 - 50.3 % [facility] Plt 213 150 - 400 K/cumm [facility] MPV 9.6 9.1 - 12.3 fL [facility] RBC 5.38 4.30 - 5.80 M/cumm [facility] MCV 85.7 81.3 - 96.4 fL [facility] MCH 28.6 27.1 - 33.3 pg [facility] MCHC 33.4 32.3 - 35.7 g/dL [facility] RDW CV 14.6 11.1 - 14.9 % [facility] RDW SD 46.3 35.7 - 48.1 fL [facility] NRBC abs 0.00 0.00 - 0.01 K/cumm [facility] Blood 03/26/2025 12:1 5 PM CDT 03/26/2025 12:15 PM CDT us Jagdish Garcia MD LAB BLOOD ORDERABLES Final Result Performing Organization Address [facility]/ZIP Co de Phone Number [facility] [address] Department [place] [address] * eGFR (03/26/2025 12:14 PM CDT) [facility] eGFR 75 >=60 mL/min/1. 73 m2 Comment: Interpretive Data Reference Interval Normal >/= 90 mL/min/1.73m2 Mildly decreased* 60 - 89 mL/min/1.73m2 Mildly to moderately decreased 45 - 59 mL/min/1.73m2 Moderately to severely decreased 30 - 44 mL/min/1.73m2 Severely decreased 15 - 29 mL/min/1.73m2 Kidney Failure < 15 mL/min/1.73m2 *Relative to young adult level Estimated glomerular filtration rate is determined by the 2020 CKD-EPI equation recommended by the National Kidney Foundation (A Unifying Approach to GFR Estimation: Recommendations of the NKF-ASK Task Force on Reassessing the Inclusion of Race in Diagnosing Kidney Disease, JASN 2020). The CKD-EPI equation should not be used for patients with unstable renal function and has not been validated in children and those over 70. Current interpretive data was last reviewed 2021. Blood 03/26/2025 12:1 4 PM CDT 03/26/2025 12:14 PM CDT Jagdish Garcia MD LAB BLOOD ORDERABLES Final Result Performing Organization Address [facility] de Phone Number [facility] [address] [place] [address] * Thyroid Function [place] (03/26/2025 12:14 PM CDT) TSH 1.43 0.30 - 4.20 mcIUnit/mL Blood 03/26/2025 12:1 4 PM CDT 03/26/2025 12:14 PM CDT Jagdish Garcia MD LAB BLOOD ORDERABLES Final Result Performing Organization Address [facility] de Phone Number [facility] [facility] [address] [place] [address] * Vitamin B12 (03/26/2025 12:14 PM CDT) Vitamin B12 954 230 - 1,250 pg/mL Blood 03/26/2025 12:1 4 PM CDT 03/26/2025 12:14 PM CDT Jagdish Garcia MD LAB BLOOD ORDERABLES Final Result [facility] [address] Department [place] [address] * (ABNORMAL) Comprehensive metabolic panel (03/26/2025 12:14 PM CDT) Sodium 137 135 - 145 mmol/L Potassium, pl 4.6 3.3 - 4.9 mmol/L [facility] Chloride 102 97 - 110 mmol/L [facility] CO2 23 22 - 32 mmol/L [facility] Anion gap 12 2 - 15 mmol/L [facility] BUN 17 6 - 25 mg/dL [facility] Creatinine 1.04 0.80 - 1.30 mg/dL [facility] Glucose 93 70 - 199 mg/dL [facility] Comment: Interpretive Data Fasting glucose >/= 126 mg/dl is diagnostic for diabetes. Fasting is defined as no caloric intake for at least 8 hours. Fasting glucose between 100 mg/dl to 125 mg/dl is diagnostic of prediabetes. In a patient with classic symptoms of hyperglycemia or hyperglycemic crisis, a random glucose >/= 200 mg/dl is diagnostic for diabetes. In the absence of unequivocal hyperglycemia, results should be confirmed by repeat testing. The classification and Diagnosis of Diabetes Diabetes Care 202; 46: S19-S40. Current interpretive data was last revised 2022. Calcium 9.4 8.5 - 10.3 mg/dL [facility] Bilirubin, total 1.3(H) 0.1 - 1.2 mg/dL [facility] Protein, pl 6.3(L) 6.5 - 8.5 g/dL [facility] Albumin 4.3 3.5 - 5.0 g/dL [facility] Alk phos 56 40 - 130 Units/L [facility] ALT 24 7 - 55 Units/L [facility] AST 26 10 - 50 Units/L [facility] Blood 03/26/2025 12:1 4 PM CDT 03/26/2025 12:14 PM CDT Jagdish Garcia MD LAB BLOOD ORDERABLES Final Result [facility] [address] Department [place] [address] from Last 3 Months Insurance [employer] MEDICARE MEDICARE [employer] Care Teams Quality Control Associate Relationship Specialty Start Date End Date Yenifer Adamson MD PCP - General Family Medicine 10/06/18
--- OUTSIDE RECORDS SUMMARY | 2025-05-14 10:36 | XMS_ITS | Encounter Summary ---
Author Organization [facility] Address [address] [place] [address] Phone Care Team Providers Care Solar Sales Name Role Phone Yenifer Adamson MD Primary Care Provider Encounter Details Date Type Department Care Team (Late st Contact Info) Description 12/08/2020 Telephone [facility] [address] [place] [address] Richy Contreras MD [address] [place] [address] Social History Tobacco Use Types Packs/Day Years Used Date Smoking Tobacco: Never Smokeless Tobacco: Never Sex and Gender Information Value Date Recorded Sex Assigned at Not on file Legal Sex Male 12:17 PM CDT Gender Identity Not on file Sexual Orientation Not on file documented as of this encounter Miscellaneous Notes * Telephone Encounter - Pratibha Jim RN - 12/08/2020 9:38 AM CDT Patient has attended joint seminar through telephone conference on 12/08/20. Joint seminar was conducted through PowerPoint, (as patient received PowerPoint, joint seminar booklet, and handouts provided via mail) PowerPoints, booklet, including page six with at home exercises for strengthening, and handouts including 'Surgical Site Infection', and 'Important Phone Numbers' were reviewed. Questionswere addressed at the end of the telephone conference. Patient was encouraged to call clinic with further questions or concerns. 12/08/20 REANNA SERRANO documented in this encounter Plan of Treatment Not on file documented as of this encounter Visit Diagnoses Not on filedocumented in this encounter Care Teams Solar Sales Relationship Specialty Start Date End Date Yenifer Adamson MD [address] [place] [address] PCP - General Family Medicine 10/12/20 documented as of this encounter
--- OUTSIDE RECORDS SUMMARY | 2025-05-14 10:36 | XMS_ITS | Encounter Summary ---
Author Organization [employer] [facility] Address [address] [place] [address] Phone Care Team Providers Care Broth Setter Name Role Phone Yenifer Adamson MD Primary Care Provider Encounter Details Date Type Department Care Team ([facility] st Contact Info) Description 02/04/2022 Telephone [facility] [address] [place] [address] Richy Contreras MD [address] [place] [address] Social History Tobacco Use Types [...] encounter Miscellaneous Notes * Telephone Encounter - Vinh Brown - 02/04/2022 9:00 AM CDT THIS IS A RESCHEDULED SURGERY Surgery scheduled with Dr. Contreras on 03/01/22 at the Main OR. Pre op physical scheduled on 02/18/22 with Yasmine Whiting. Pre op labs done w/ previous surgical date. Post op appointments have been scheduled with xrays. Joint Seminar sent w/ original surgical date. Case is on OP Time. Case is in the Black Book. Consents have been copied. Patient has Medicare Part A & B insurance. documented in this encounter Plan of Treatment Not on file documented as of this encounter Visit Diagnoses Not on filedocumented in this encounter Care Teams Broth Setter Relationship Specialty Start Date End Date Yenifer Adamson MD [address] [place] [address] PCP - General Family Medicine 10/12/20 documented as of this encounter
--- OUTSIDE RECORDS SUMMARY | 2025-05-14 10:36 | XMS_ITS | Patient Health Record ---
Author Organization Ashley Ramos [facility] Address [address] [place] [address] Care Team Providers Care Tavern Car Attendant Name Role Phone Yenifer Adamson MD Primary Care Provider Unavail able Norma Gregory Unavailable [phone] Allergies No Known Allergies Reason For Referral No Information Medications Medication SIG (Take, Route, Frequency, Duration) Notes Start Date End Date Status Vitamin C Active Aspirin 81 Active Tamsulosin HCl 0.4 MG Oral; Duration: 90 Days Active Vitamin B 12 Active Finasteride 5 MG Oral; Duration: 90 Days Active Spironolactone 25 MG Oral; Duration: 90 Days Active Breztri Aerosphere 160-9-4.8 MCG/ACT Inhalation; Duration: 30 Days Active Xarelto 20 MG Oral; Duration: 30 Days Active metFORMIN HCl ER 500 MG Oral; Duration: 90 Days Active Zinc Active Donepezil HCl 5 MG Oral; Duration: 90 Days Active Famotidine 40 MG Oral; Duration: 90 Days Active Doxepin HCl 3 MG Oral; Duration: 30 Days Active Social History Tobacco Use: Social History Observation Description Date Details (start date - stop date) Never Smoker NA - NA Tobacco Control (Standard) Question Answer Notes Tobacco use: Nonsmoker Problems Problem Type SNOMED Code ICD Code Onset Dates Problem Status W/U Status Risk Notes Problem Plantar fascial fibromatosis (44346991) Plantar fascial fibromatosis (M72.2) Active confirmed Vital Signs Weight-kg 81.65 kg 04/11/2025 Height 73 in 04/11/2025 Weight 180 lbs 04/11/2025 BMI 23.75 kg/m2 04/11/2025 Encounters Encounter Location Date Provider Diagnosis Gil Rosas [facility] [address] [id number] 04/11/2025 Norma Gregory Plantar fascial fibromatosis M72.2 Assessments Encounter Date Diagnosis (ICD Code) Assessment Notes Treatment Notes Treatment Clinical Notes Section Notes 04/11/2025 Plantar fascial fibromatosis (ICD-10 - M72.2) Advised RICE. Advised stretching exercises and supportive shoes. Do not go barefoot. Consider orthtics, PT, injection. Try topical or oral anti-inflammato ry for additional relief if needed. Plan Of Treatment No Information Insurance Providers Payer Name Payer Address Payer Phone Subscriber Number Group Number Insured Name Patient Relationship to Insured Coverage Start Date Coverage End Date [place] Medicare [address] [place] [address] [id number] Backs, Antoine Self - patient is the insured [employer] [address] [address] [place] [address] [id number] Backs, Antoine Self - patient is the insured Medical (General) History Surgical History Surgery Date(Month/Year) KNEE REPLACEMENTS X2
--- OUTSIDE RECORDS SUMMARY | 2025-05-14 10:36 | XMS_ITS | Encounter Summary ---
Author Organization [facility] Address [address] [place] [address] Phone Care Team Providers Care Financial Secretary Name Role Phone Yenifer Adamson MD Primary Care Provider Encounter Details Date Type Department Care Team (Latest Contact Info) Description 01/06/2021 Transcribe Orders Non [facility] Referring Docs Yenifer Adamson MD [address] [place] [id number] Preop examination (Primary Dx); Shortness of breath Social History Tobacco Use Types Packs/Day Years [...] of this encounter Visit Diagnoses Diagnosis Preop examination- Primary Preoperative examination, unspecified Shortness of breath documented in this encounter Care Teams Financial Secretary Relationship Specialty Start Date End Date Yenifer Adamson MD [address] [place] [phone] PCP - General Family Medicine 10/12/20 documented as of this encounter
--- OUTSIDE RECORDS SUMMARY | 2025-05-14 10:36 | XMS_ITS | Encounter Summary ---
Author Organization [facility] Address [address] [place] [address] Phone Care Team Providers Care Product Marketing Intern Name Role Phone Yenifer Adamson MD Primary Care Provider Encounter Details Date Type Department Care Team ([facility] st Contact Info) Description 01/26/2021 Telephone [facility] [address] [place] [address] Richy Contreras MD [address] [place] [address] Social History Tobacco Use Types [...] have Coronavirus / COVID-19? No / Unsure 01/27/2021 3:10 PM CDT documented as of this encounter Functional Status * Question Answer Date of Assessment Author Has pt fallen within the las t 2 years? No 01/27/2021 3:14 PM CDT Latasha Rosas, RN * Question Answer Date of Assessment Author Total Fall Risk Score 24 2021 8:01 AM CDT Dax Seo RN * AUDIT-C Screen Question Answer Date of Assessment Author Total AUDIT-C Score 4 01/27/2021 3:13 PM CD T Latasha Rosas, RN documented as of this encounter Mental Status * Question Answer Entry Date Author Orientation Status (Cognition) oriented x 4 2021 10:55 AM CDT Nick Ram * Question Answer Entry Date Author Spickard Coma Scale Score 15 2021 8:01 AM CDT Dax Seo RN * Question Answer Entry Date Author Level of Consciousness alert 2021 11:56 A M CDT Dax Seo RN * Question Answer Entry Date Author RASS (Waller Agitation-Sedation Scale) 0-->alert and calm 2021 11:56 AM CDT Dax Seo RN * Question Answer Entry Date Author CAM (3D) Calculated Result Negative 2021 4:5 9 AM CDT Alejandro Galarza RN * Question Answer Entry Date Author Orientation oriented x 4 2021 11:56 AM CDT Dax Seo RN Cognitive/Neuro/Behavioral WDL WDL;all 2021 11:56 AM CDT Dax Seo RN documented in this encounter Miscellaneous Notes * Telephone Encounter - Moriah Staton RN - 02/09/2021 9:[address] Contreras, please see RAENNA Madera's update below as FYI only. GUTIERREZ RN * Telephone Encounter - Cassy Kim RN - 02/05/2021 5:01 PM CDT Spoke to patient regarding vitamin d supplement 02/05/21. He reports that he reported to the ED 02/04/21. They did an xr of the foot and ankle and a doppler that came back ok. * Telephone Encounter - Adela King RN - 02/04/2021 3:11 PM CDT Noted by nursing. Raisa will call with updates next week. Will postpone to 02/09/21 to check on patient if haven't heard from RN by 02/08/21. 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 Concerned about DVT to LLE. Knee incision okay. Foot is my concern, I have advised him to go to ED. Bottom of left foot is black. Toes purplish black. Unable to get DP pulse. Toes ice cold--un-blanchable. Physical Therapy was aware of foot appearance but did not assess further RN will not discharge home care until f/u from ED. Will re-assess twice next week. OBJECTIVE: DOS 01/27/21 Left TKA. Ankle sprain s/p surgery after fall in restroom. Patient Lives in [place], [place]. [facility] in [place], [place] is where he is headed for further medical treatment. REANNA Kline is going to call with a report prior to his arrival. Hx: DVT RLE / Saddle clot--on xarelto ASSESSMENT/PLAN: Readiness for enhanced self health management Per encounter diagnoses and orders. Routing to [facility] as Next appt 02/11/21 * Telephone Encounter - Moriah Staton RN - 01/26/2021 2:40 PM CDT Images from the original note were not included. Received call from REANNA Espinoza with preop dept. She inquired about patient's Xarelto hold instructions. Reviewed with debbie Espinoza t/e dated 10/23/2020: Richy Contreras MD ?? 1:14 PM Note Recommended blood thinner holds are fine ?? AE ?? 9:07 AM Idris Christensen, REANNA routed this conversation to [facility] Nurse ??? Richy Contreras MD Entler, Ashton Linnae, REANNA AE ?? 9:06 AM Note Routing to Dr. Contreras: Please review and advise, ASA and Xarelto holding instructions. ?? Please advise if okay with holding instructions for ASA and Xarelto per Dr. Jacobs. ASA hold for seven days, Xarelto hold for 48 hours prior to surgery. May resume as early as 24 hours after surgery per surgeon discretion per below scanned documentation. VIKKI RN She voiced understanding & confirmed the patient completed it this way. GUTIERREZ RN documented in this encounter Plan of Treatment Not on file documented as of this encounter Visit Diagnoses Not on filedocumented in this encounter Care Teams Product Marketing Intern Relationship Specialty Start Date End Date Yenifer Adamson MD [address] [place] [address] PCP - General Family Medicine 10/12/20 documented as of this encounter
--- OUTSIDE RECORDS SUMMARY | 2025-05-14 10:36 | XMS_ITS | Patient Health Record ---
Author Organization [facility] Address [address] [place] [address] Care Team Providers Care Lead Janitor Name Role Phone Dr. Yenifer Adamson Primary Care Provider [phone] Yasmine Whiting Unavailable [phone] Yenifer Delgado Unavailable [phone] Migration, Provider Unavailable Unavailable Allergies No Known Allergies Results Component Value Reference Range Flag Notes AUDIT-C Reviewed date:05/16/2024 12:00:00 AM Interpretation: Performing Lab: Notes/Report: How many standard drinks containing alcohol do you have on a typical day? N/A How often do you have 6 or more drinks on 1 occasion Never How often do you have a drink containing alcohol Never Total Score 0 CT Chest with Contrast (7126 0) Reviewed date:12/13/2024 11:52:38 AM Interpretation: Performing Lab: Notes/Report: Comprehensive Metabolic Pane l Reviewed date:12/04/2024 08:11:23 AM Interpretation: Performing Lab: Notes/Report: Test Performed by: Moriah Lopez [address] [address] Stain Wiper: Rony Rojas DO Glucose Lvl 93 74-109 mg/dL ADA risk stratification for diabetes <100 mg/dL = Normal 100-125 mg/dL = Increased risk for future diabetes >=126 mg/dL = Diabetes, if on more than one testing occasion BUN 17 7-25 mg/dL Creatinine Lvl 1.08 0.70-1.30 mg/dL eGFR CKD-EPI 72 >=90 mL/min/1.73 m2 L The CKD-EPI equation is validated in individuals 18 years of age and older. It is less accurate in patients with extremes of muscle mass, restriction of dietary protein, ingestion of creatine, extra-renal metabolism of creatinine, or treatment with medications that affect renal tubular creatinine secretion. GFR Categories in Chronic Kidney Disease (CKD) GFR GFR (mL/min/1.73 Category: square meters): Interpretation: G1 90 or greater Normal or high* G2 60-89 Mild decrease* G3a 45-59 Mild to moderate decrease G3b 30-44 Moderate to severe decrease G4 15-29 Severe decrease G5 14 or less Kidney failure *In the absence of evidence of kidney damage, neither GFR category G1 nor G2 fulfill the criteria for CKD (Kidney Int Suppl 2013;3:1-150) Calcium Lvl 9.3 8.6-10.3 mg/dL Sodium Lvl 140 136-145 mmol/L Potassium Lvl 4.1 3.5-5.1 mmol/L Chloride Lvl 105 98-107 mmol/L CO2 25 21-31 mmol/L Anion Gap 10.3 <=16.0 mmol/L Alk Phos 46 34-104 unit/L Bilirubin Total 1.7 0.3-1.0 mg/dL H Albumin Lvl 4.6 3.5-5.2 g/dL Protein Total 6.5 6.4-8.9 g/dL Albumin/Globulin Ratio 2.5 1.1-2.5 ALT 15 7-52 unit/L AST 18 13-39 unit/L CBC w Auto Diff Reviewed date:12/04/2024 08:11:23 AM Interpretation: Performing Lab: Notes/Report: Test Performed by: [place] [address] Stain Wiper: Rony Rojas DO WBC 5.8 4.0-11.7 K/mcL RBC 5.37 4.28-5.56 x10*6/mcL Hgb 15.5 13.0-17.0 g/dL Hct 45.7 38.1-48.9 % MCV 85.2 83.4-98.1 fL MCH 28.9 27.0-34.2 pg MCHC 33.9 31.8-35.3 g/dL RDW 14.8 12.0-16.4 % Platelets 205 149-393 K/mcL MPV 8.6 7.0-11.0 fL Neutro Auto 65.6 45.3-79.0 % Lymph Auto 22.4 11.8-45.9 % Grand Auto 9.9 4.4-12.0 % Eosinophil Auto 1.7 0.0-6.3 % Basophil Auto 0.4 0.2-1.6 % Neutro Absolute 3.8 2.4-8.4 x10*3/mcL Lymph Absolute 1.3 0.8-3.7 x10*3/mcL Grand Absolute 0.6 0.3-1.1 x10*3/mcL Eos Absolute 0.1 0.0-0.5 x10*3/mcL Echocardiogram Reviewed date:12/31/2024 12:18:00 PM Interpretation: Performing Lab: Notes/Report: B-Type Natriuretic Peptide Reviewed date:11/07/2024 08:46:57 AM Interpretation: Performing Lab: Notes/Report: Test Performed by: [address] [address] Stain Wiper: Rony Rojas DO BNP 66 0-100 pg/mL 0-100 pg/mL CHF very unlikely 100-400 pg/mL BNP may be elevated due to stable underlying left ventricular dysfunction, right ventricular failure, cor pulmonale, pulmonary embolism, or renal failure. >5000 pg/mL CHF very likely CT Abdomen and Pelvis with c ontrast ([id number]) Reviewed date:01/20/2025 11:24:57 AM Interpretation: Performing Lab: Notes/Report: Comprehensive Metabolic Pane l Reviewed date:12/20/2024 05:50:26 PM Interpretation: Performing Lab: Notes/Report: Test Performed by: [address] [address] Stain Wiper: Rony Rojas DO Glucose Lvl 112 74-109 mg/dL H ADA risk stratification for diabetes <100 mg/dL = Normal 100-125 mg/dL = Increased risk for future diabetes >=126 mg/dL = Diabetes, if on more than one testing occasion BUN 16 7-25 mg/dL Creatinine Lvl 1.07 0.70-1.30 mg/dL eGFR CKD-EPI 73 >=90 mL/min/1.73 m2 L The CKD-EPI equation is validated in individuals 18 years of age and older. It is less accurate in patients with extremes of muscle mass, restriction of dietary protein, ingestion of creatine, extra-renal metabolism of creatinine, or treatment with medications that affect renal tubular creatinine secretion. GFR Categories in Chronic Kidney Disease (CKD) GFR GFR (mL/min/1.73 Category: square meters): Interpretation: G1 90 or greater Normal or high* G2 60-89 Mild decrease* G3a 45-59 Mild to moderate decrease G3b 30-44 Moderate to severe decrease G4 15-29 Severe decrease G5 14 or less Kidney failure *In the absence of evidence of kidney damage, neither GFR category G1 nor G2 fulfill the criteria for CKD (Kidney Int Suppl 2013;3:1-150) Calcium Lvl 9.3 8.6-10.3 mg/dL Sodium Lvl 140 136-145 mmol/L Potassium Lvl 4.0 3.5-5.1 mmol/L Chloride Lvl 105 98-107 mmol/L CO2 28 21-31 mmol/L Anion Gap 7.0 <=16.0 mmol/L Alk Phos 48 34-104 unit/L Bilirubin Total 1.6 0.3-1.0 mg/dL H Albumin Lvl 4.5 3.5-5.2 g/dL Protein Total 6.1 6.4-8.9 g/dL L Albumin/Globulin Ratio 2.7 1.1-2.5 H ALT 16 7-52 unit/L AST 17 13-39 unit/L B-Type Natriuretic Peptide Reviewed date:12/20/2024 05:50:26 PM Interpretation: Performing Lab: Notes/Report: Test Performed by: [place] [id number] Stain Wiper: Rony Rojas DO BNP 29 0-100 pg/mL 0-100 pg/mL CHF very unlikely 100-400 pg/mL BNP may be elevated due to stable underlying left ventricular dysfunction, right ventricular failure, cor pulmonale, pulmonary embolism, or renal failure. >5000 pg/mL CHF very likely X ray : Foot, left 3v Reviewed date:03/14/2025 09:16:06 AM Interpretation: Performing Lab: Notes/Report: PSA Annual Screening Reviewed date:10/22/2024 10:51:48 PM Interpretation: Performing Lab: Notes/Report: Test Performed by: [place] [id number] Stain Wiper: Rony Rojsa DO PSA Total 3.14 0.00-4.00 ng/mL Vitamin B12 Reviewed date:10/22/2024 10:51:48 PM Interpretation: Performing Lab: Notes/Report: Test Performed by: [place] [id number] Stain Wiper: Rony Rojas DO Vitamin B12 Lvl 714 180-914 pg/mL Vitamin B12 Interpretation: Normal Range: 180-914 pg/mL Indeterminate: 140-180 pg/mL Deficient: <140 pg/mL Thyroid Stimulating Hormone Reviewed date:10/22/2024 10:51:48 PM Interpretation: Performing Lab: Notes/Report: Test Performed by: [place] [address] Stain Wiper: Rony Rojas DO TSH 1.93 0.45-5.33 mcIU/mL Lipid Panel {Chol, Trig, HDL , LDL} Reviewed date:10/22/2024 10:51:48 PM Interpretation: Performing Lab: Notes/Report: Test Performed by: [place] [address] Stain Wiper: Rony Rojas DO Cholesterol Total 115 <=199 mg/dL Triglycerides 147 0-149 mg/dL Triglyceride Reference Ranges: <150 mg/dL Normal 150 - 199 mg/dL Borderline High 200 - 499 mg/dL High >=500 mg/dL Very High LDL 49 <=100 mg/dL LDL Optimal: <100 Near or above optimal: 100-129 Borderline high: 130-159 High: 160-189 Very high: >=190 Coronary heart disease risk factors should be considered when determining LDL goals. Please refer to ATPIII guidelines for further information. If LDL is not calculated, please call the lab to add on the direct LDL methodology, if desired. HDL 36 23-92 mg/dL Non HDL Cholesterol 78 <=130 mg/dL Chol/HDL 3 0-5 Coronary Risk 32 Coronary Risk Factor - Male Dangerous Risk: <7 % High Risk: 7-15 % Average Risk: 15-25 % Below Average Risk: 25-37 % Coronary Risk Factor - Female Dangerous Risk: <12 % High Risk: 12-18 % Average Risk: 18-27 % Below Average Risk: 27-40 % Comprehensive Metabolic Pane l Reviewed date:10/22/2024 10:51:48 PM Interpretation: Performing Lab: Notes/Report: Test Performed by: [address] [address] Stain Wiper: Rony Rojas DO Glucose Lvl 127 74-109 mg/dL H ADA risk stratification for diabetes <100 mg/dL = Normal 100-125 mg/dL = Increased risk for future diabetes >=126 mg/dL = Diabetes, if on more than one testing occasion BUN 17 7-25 mg/dL Creatinine Lvl 1.08 0.70-1.30 mg/dL eGFR CKD-EPI 72 >=90 mL/min/1.73 m2 L The CKD-EPI equation is validated in individuals 18 years of age and older. It is less accurate in patients with extremes of muscle mass, restriction of dietary protein, ingestion of creatine, extra-renal metabolism of creatinine, or treatment with medications that affect renal tubular creatinine secretion. GFR Categories in Chronic Kidney Disease (CKD) GFR GFR (mL/min/1.73 Category: square meters): Interpretation: G1 90 or greater Normal or high* G2 60-89 Mild decrease* G3a 45-59 Mild to moderate decrease G3b 30-44 Moderate to severe decrease G4 15-29 Severe decrease G5 14 or less Kidney failure *In the absence of evidence of kidney damage, neither GFR category G1 nor G2 fulfill the criteria for CKD (Kidney Int Suppl 2013;3:1-150) Calcium Lvl 8.6 8.6-10.3 mg/dL Sodium Lvl 138 136-145 mmol/L Potassium Lvl 4.2 3.5-5.1 mmol/L Chloride Lvl 105 98-107 mmol/L CO2 27 21-31 mmol/L Anion Gap 5.9 <=16.0 mmol/L Alk Phos 55 34-104 unit/L Bilirubin Total 1.2 0.3-1.0 mg/dL H Albumin Lvl 4.2 3.5-5.2 g/dL Protein Total 5.7 6.4-8.9 g/dL L Albumin/Globulin Ratio 2.8 1.1-2.5 H ALT 15 7-52 unit/L AST 16 13-39 unit/L CBC w Auto Diff Reviewed date:10/22/2024 10:51:48 PM Interpretation: Performing Lab: Notes/Report: Test Performed by: [address] [place] [address] Stain Wiper: Rony Rojas DO WBC 8.6 4.0-11.7 K/mcL RBC 5.37 4.28-5.56 x10*6/mcL Hgb 15.5 13.0-17.0 g/dL Hct 46.1 38.1-48.9 % MCV 85.8 83.4-98.1 fL MCH 28.8 27.0-34.2 pg MCHC 33.6 31.8-35.3 g/dL RDW 14.8 12.0-16.4 % Platelets 210 149-393 K/mcL MPV 8.2 7.0-11.0 fL Neutro Auto 75.8 45.3-79.0 % Lymph Auto 15.5 11.8-45.9 % Grand Auto 6.7 4.4-12.0 % Eosinophil Auto 1.4 0.0-6.3 % Basophil Auto 0.6 0.2-1.6 % Neutro Absolute 6.5 2.4-8.4 x10*3/mcL Lymph Absolute 1.3 0.8-3.7 x10*3/mcL Grand Absolute 0.6 0.3-1.1 x10*3/mcL Eos Absolute 0.1 0.0-0.5 x10*3/mcL Baso Absolute 0.1 0.0-0.1 x10*3/mcL T4 Free Reviewed date:10/22/2024 10:51:48 PM Interpretation: Performing Lab: Notes/Report: Added after draw Test Performed by: [place] [id number] Stain Wiper: Rony Rojas DO T4 Free 1.00 0.60-1.70 ng/dL Hemoglobin A1c {Glycosylated } Reviewed date:10/22/2024 10:51:48 PM Interpretation: Performing Lab: Notes/Report: Test Performed by: [place] [id number] Stain Wiper: Rony Rojas DO Hemoglobin A1c 6.2 <=6.4 % Hemoglobin A1C < 5.7% = Normal 5.7-6.4% = Increased risk for future diabetes >=6.5% = Diabetes eAvg Glucose 131 <=117 mg/dL H eAG Reference Range <117 mg/dL = Normal 117-137 mg/dL = Increased Risk For Future Diabetes >137 mg/dL = Diabetes Thyroid Stimulating Hormone Reviewed date:10/23/2024 09:57:36 PM Interpretation: Performing Lab: Notes/Report: T4 Free Reviewed date:10/23/2024 09:57:36 PM Interpretation: Performing Lab: Notes/Report: Reason For Referral Reason Gallstones Diagnosis 1 Gallstones (K80.20) Referral Organization [facility] Referring Provider First Name Dr. Street Referring Provider Last Name Rio Nido Referring Provider [facility] Referred Provider Specialty Gastroentero logy General Notes Saray Correa 01/24 05:07:45 PM CDT >Gissel Benavides Jessica 01/29/2025 04:02:15 PM CDT >Referral faxed to Dr. Nicole [phone], Raisa Chauhan 03/14/2025 08:21:54 AM CDT >Called office to follow up on referral. Office never received referral. Referral refaxed Referral Priority Routine Reason Dr. Bri Brown [place] Diagnosis 1 Plantar fasciitis of left foot (M72.2) Diagnosis 2 Left foot pain (M79. 672) Referral Organization [facility] Referring Provider First Name Dr. Street Referring Provider Last Name Rio Nido Referring Provider [facility] Referred Provider Norma Gregory Referred Provider Specialty Podiatry General Notes Raisa Chauhan 0 03/18/2025 08:33:07 AM CDT >Referral faxed to Dr. Gregory [phone] Referral Priority Urgent Medications Medication SIG (Take, Route, Frequency, Duration) Notes Start Date End Date Status Donepezil HCl 5 MG Tablet 1 tablet at bedtime Orally Once a day; Duration: 90 days Active Breztri Aerosphere 160-9-4.8 MCG/ACT Aerosol 2 Inhalation two times a day; Duration: 0 09/13/2023 Active Finasteride 5 MG Tablet 1 tablet Orally Once a day; Duration: 90 days 02/03/2025 Active Zinc oral; Duration: 0 *Pick strength-form from [employer] for eRX* 02/18/2022 Active Xarelto 20 MG Tablet 1 Oral every day; Duration: 0 12/09/2020 Active Cephalexin 500 MG Capsule Oral; Duration: 10 Days Active Spironolactone 25 MG Tablet 1 tablet Orally daily; Duration: 90 days Active Vitamin C 1000 MG Tablet Oral; Duration: 0 02/18/2022 Active metFORMIN HCl ER 500 MG Tablet Extended Release 24 Hour 1 tablet Orally twice a day; Duration: 90 days Active Tamsulosin HCl 0.4 MG Capsule 1 capsule Orally twice a day; Duration: 90 days Active Aspirin Adult Low Strength 81 MG Tablet Delayed Release 1 Oral every day; Duration: 0 12/09/2020 Active Vitamin B-12 1000 MCG Tablet 1 Oral every day; Duration: 0 12/09/2020 Active Doxepin HCl 3 MG Tablet 1 TABLET AT BEDT INDERJIT ORALLY ONCE A DAY; Duration: 30 Active Famotidine 40 MG Tablet 1 tablet Orally Once a day; Duration: 90 days Active Immunizations Vaccine Route Administration Date Status Comme nts Zoster Unknown 05/30/2015 Administered ,sourcename : Historical information -source unspecified Source VFC Code: : Zoster Unknown 04/02/2020 Administered ,sourcename : Historical information -source unspecified Source VFC Code: : Zoster Unknown 05/26/2020 Administered ,sourcename : Historical information -source unspecified Source VFC Code: : Tdap Unknown 11/26/2015 Administered Source VFC Code: : Tdap Unknown 10/31/2020 Administered ,sourcename : Historical information -source unspecified Source VFC Code: : RSV-MAb (Respiratory syncytial virus immune globulin) IM Intramuscular 03/28/2024 Administered ,sourcename : New immunization record ,immstatus : Complete Pneumococcal polysaccharide PPV23 Unknown 07/27/2017 Administered ,sourcename : Historical information -source unspecified Source VFC Code: : Pneumococcal conjugate PCV 13 Unknown 05/30/2016 Administered ,sourcename : Historical information -source unspecified Source VFC Code: : Moderna Covid-19 Vaccine 1st dose Unknown 08/22/2020 Administered ,sourcename : Historical information -from other provider Source VFC Code: : Moderna Covid-19 Vaccine 1st dose Unknown 09/19/2020 Administered ,sourcename : Historical information -from other provider Source VFC Code: : Moderna Covid-19 Vaccine 1st dose IM Intramuscular 07/02/2021 Administered Source [facility] Code: : Influenza, high dose seasonal IM Intramuscular 04/28/2025 Administered Social History Tobacco Use: Social History Observation Description Date Details (start date - stop date) Never Smoker NA - NA Social History Household: Social Info Question Answer Notes Household Marital status: Drug/Alcohol: Social Info Question Answer Notes AUDIT-C (Standard) Did you have a drink containing alcohol in the past year? 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 No Section Notes: Tobacco use: None , Alcohol use: None , Occupation: Retired [employer] Problems Problem Type SNOMED Code ICD Code Onset Dates Problem Status W/U Status Risk Notes Problem Memory loss (23781776) Memory loss (R41.3) Active confirmed Problem Plantar fascial fibromatosis (25164272) Plantar fasciitis, right (M72.2) Active confirmed Problem Plantar fascial fibromatosis (30624281) Plantar fasciitis, left (M72.2) Active confirmed Problem Vitamin B>12< deficiency anaemia (98285681) Vitamin B12 deficiency anemia, unspecified (D51.9) 024 Active confirmed Problem Morbid obesity (disorder) (585931764) Morbid (severe) obesity due to excess calories (E66.01) 023 Active confirmed Problem Anxiety disorder (074755298) Anxiety disorder, unspecified (F41.9) Active confirmed Problem Cerebrovascular disease (81102925) Cerebrovascular disease, unspecified (I67.9) 021 Active confirmed Problem Lower urinary tract symptoms due to benign prostatic hypertrophy (70236004575319) Enlarged prostate with lower urinary tract symptoms (N40.1) 024 Active confirmed Problem Body mass index 35.0 0 to 39.99 (632243284274606) Body mass index (BMI) 37.0-37.9, adult (Z68.37) 023 Active confirmed Problem Gallstones (034381680) Gallstones (K80.20) Active confirmed Problem Hyperlipidemia (09166632) Hyperlipidemia, unspecified (E78.5) Active confirmed Problem Adjustment disorder with depressed mood (78510551) Adjustment disorder with depressed mood (F43.21) Active confirmed Problem Grade I diastoli c dysfunction (I51.89) Active confirmed seen on ECHO done Problem Prediabetes (981410398) Prediabetes (R73.03) Active confirmed Problem Swelling of first metatarsophalangeal joint of hallux (414416668) Bunion of unspecified foot (M21.619) Active confirmed Problem Solitary pulmonary nodule (093240282) Solitary pulmonary nodule (R91.1) Active confirmed Problem Spinal stenosis in cervical region (94398054) Spinal stenosis, cervical region (M48.02) Active confirmed Problem Acquired hammer toe of left foot (3119876240979481) Other hammer toe(s) (acquired), left foot (M20.42) Active confirmed Problem Acquired hammer toe of right foot (5800053131981344) Other hammer toe(s) (acquired), right foot (M20.41) Active confirmed Problem Gastro-esophageal reflux disease without esophagitis (390017794) Gastro-esophageal reflux disease without esophagitis (K21.9) Active confirmed Problem Allergic rhinitis (18082790) Allergic rhinitis, unspecified (J30.9) Active confirmed Problem Cardiac arrhythmia (518083159) Cardiac arrhythmia, unspecified (I49.9) Active confirmed Problem Gilbert syndrome (93510106) Gilbert syndrome (E80.4) Active confirmed Problem Plantar fasciitis of left foot (27961484674165745) Plantar fasciitis of left foot (M72.2) Active confirmed Problem Family history of clinical finding (643111878) Family history of other specified conditions (Z84.89) Active confirmed Problem Long-term current us e of inhaled steroid (711892766) long 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 care social worker (current) use of inhaled steroids (Z79.51) Active confirmed Problem Electrocardiogram abnormal (053998501) Abnormal electrocardiogram [ECG] [EKG] (R94.31) 022 Active confirmed Problem Osteoarthritis (539638981) Unspecified osteoarthritis, unspecified site (M19.90) Active confirmed Problem 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) (347993077137804) 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) Active confirmed Problem Sleep apnea (60648115) Sleep apnea, unspecified (G47.30) Active confirmed Problem History of pulmonary embolus (971632023) Personal history of pulmonary embolism (Z86.711) Active confirmed Vital Signs Heart Rate 55 /min 04/28/2025 Temperature 96.9 degrees Fahrenheit 04/28/2025 Respiratory Rate 18 /min 04/28/2025 Height-cm 185.42 cm 04/28/2025 Oximetry 95 % 04/28/2025 Blood pressure diastolic 70 mm Hg 04/28/2025 Weight-kg 128.82 kg 04/28/2025 Height 73.00 in 04/28/2025 Blood pressure systolic 112 mm Hg 04/28/2025 Weight 284 lbs 04/28/2025 BMI 37.47 kg/m2 04/28/2025 Encounters Encounter Location Date Provider Diagnosis [address] [phone] 05/16/2024 Yasmine Henok Chronic embolism and thrombosis of right femoral vein I82.511 ; Encounter for screening for malignant neoplasm of colon Z12.11 ; Personal history of other drug therapy Z92.29 ; Phlebitis and thrombophlebitis of unspecified site I80.9 ; Enlarged prostate without lower urinary tract symptoms N40.0 ; Prediabetes R73.03 ; Encounter for general adult medical examination without abnormal findings Z00.00 ; Solitary pulmonary nodule R91.1 ; Morbid (severe) obesity due to excess calories E66.01 ; Body mass index (BMI) 37.0-37.9, adult Z68.37 ; Other amnesia R41.3 ; Personal history of pulmonary embolism Z86.711 ; Family history of other specified conditions Z84.89 ; long term care social worker (current) use of inhaled steroids Z79.51 ; Sleep disorder, unspecified G47.9 ; Sleep apnea, unspecified G47.30 and Hypersensitivity pneumonitis due to unspecified organic dust J67.9 [place] [phone] 11/06/2024 Yenifer Delgado Prediabetes R73.03 ; Sleep apnea, unspecified G47.30 ; Memory loss R41.3 ; Intermittent chest pain R07.9 ; SOB (shortness of breath) on exertion R06.02 ; Bilateral lower extremity edema R60.0 and Enlarged prostate with lower urinary tract symptoms N40.1 [place] [address] 12/02/2024 Dr. Yenifer Adamson Shortness of breath R06.02 ; Lower extremity edema R60.0 ; Enlarged prostate with lower urinary tract symptoms N40.1 ; Dementia, unspecified dementia severity, unspecified dementia type, unspecified whether behavioral, psychotic, or mood disturbance or anxiety F03.90 ; Anxiety disorder, unspecified F41.9 and Adjustment disorder with depressed mood F43.21 [place] [address] 12/25/2024 Dr. Yenifer Adamson Chronic GERD K21.9 ; Elevated bilirubin R17 ; Chronic diarrhea K52.9 ; Dizziness R42 ; Enlarged prostate with lower urinary tract symptoms N40.1 and Shortness of breath R06.02 [place] [address] 02/03/2025 Dr. Yenifer Adamson Enlarged prostate with lower urinary tract symptoms N40.1 ; Gastro-esophageal reflux disease without esophagitis K21.9 ; Gallstones K80.20 ; Grade I diastolic dysfunction I51.89 ; Shortness of breath R06.02 and Intermittent diarrhea R19.7 [place] [phone] 03/14/2025 Dr. Yenifer Adamson Left foot pain M79.672 ; Gallstones K80.20 and Plantar fasciitis of left foot M72.2 [place] [address] 04/28/2025 Dr. Yenifer Adamson Encounter for subsequent annual wellness visit (AWV) in Medicare patient Z00.00 ; Prediabetes R73.03 ; Enlarged prostate with lower urinary tract symptoms N40.1 ; Cerebrovascular disease, unspecified I67.9 ; Plantar fasciitis, left M72.2 ; Gilbert syndrome E80.4 ; Memory loss R41.3 ; Laceration without foreign body of left hand, subsequent encounter S61.412D ; Laceration of unspecified muscle, fascia and tendon at wrist and hand level, left hand, subsequent encounter S66.922D ; Encounter for immunization Z23 ; Morbid (severe) obesity due to excess calories E66.01 and Personal history of pulmonary embolism Z86.[address] [address] 06/15/2024 Provider Migration [address] [address] 06/16/2024 Provider Migration [address] [address] 05/06/2025 Dr. Yenifer Adamson [address] [address] 10/22/2024 Dr. Yenifer Adamson Prediabetes R73.03 ; Vitamin B12 deficiency anemia, unspecified D51.9 ; Body mass index (BMI) 40.0-44.9, adult Z68.41 ; Encounter for screening for malignant neoplasm of prostate Z12.5 and Hyperlipidemia, unspecified E78.[address] [address] 10/23/2024 Dr. Yenifer Adamson [address] [address] 11/07/2024 Yenifer Delgado [address] [address] 12/04/2024 Dr. Yenifer Adamson [address] [address] 12/20/2024 Dr. Yenifer Adamson Lower extremity edema R60.0 Assessments Encounter Date Diagnosis (ICD Code) Assessment Notes Treatment Notes Treatment Clinical Notes Section Notes 12/20/2024 Lower extremity edema (ICD-10 - R60.0) 05/16/2024 Morbid (severe) obesity due to excess calories (ICD-10 - E66.01) 05/16/2024 Sleep apnea, unspecified (ICD-10 - G47.30) 05/16/2024 Sleep disorder, unspecified (ICD-10 - G47.9) 05/16/2024 Phlebitis and thrombophlebitis of unspecified site (ICD-10 - I80.9) 05/16/2024 Chronic embolism and thrombosis of right femoral vein (ICD-10 - I82.511) 05/16/2024 Hypersensitivity pneumonitis due to unspecified organic dust (ICD-10 - J67.9) 05/16/2024 Other amnesia (ICD-10 - R41.3) 05/16/2024 Solitary pulmonary nodule (ICD-10 - R91.1) 05/16/2024 Encounter for general adult medical examination without abnormal findings (ICD-10 - Z00.00) 05/16/2024 Encounter for screening for malignant neoplasm of colon (ICD-10 - Z12.11) 05/16/2024 [facility] (current) use of inhaled steroids (ICD-10 - Z79.51) 05/16/2024 Family history of other specified conditions (ICD-10 - Z84.89) 05/16/2024 Personal history of pulmonary embolism (ICD-10 - Z86.711) 05/16/2024 Personal history of other drug therapy (ICD-10 - Z92.29) 05/16/2024 Prediabetes (ICD-10 - R73.03) 05/16/2024 Enlarged prostate without lower urinary tract symptoms (ICD-10 - N40.0) 05/16/2024 Body mass index (BMI) 37.0-37.9, adult (ICD-10 - Z68.37) 02/03/2025 Gastro-esophageal reflux disease without esophagitis (ICD-10 - K21.9) 02/03/2025 Enlarged prostate with lower urinary tract symptoms (ICD-10 - N40.1) 38 mins spent face to face with patient. Additionally, 4 mins spent reviewing previous notes/records and labs and imaging. 12/25/2024 Chronic GERD (ICD-10 - K21.9) 12/25/2024 Elevated bilirubin (ICD-10 - R17) 10/22/2024 Prediabetes (ICD-10 - R73.03) 04/28/2025 Prediabetes (ICD-10 - R73.03) Discussed prediabetes diagnosis. Recommend lower carb diet, higher protein diet, exercise and routines, weightlifting exercise, as appropriate for age and physique, as well as staying hydrated. Recommended recheck labs in proximally six months at the next checkup. Discussed hemoglobin A1c is 6.5 or higher is diabetes and we should try to regress the condition into the normal sugar range for averages. 04/28/2025 Encounter for subsequent annual wellness visit (AWV) in Medicare patient (ICD-10 - Z00.00) AWV Instructions The patient's health risk assessment was reviewed during this visit. The patient's chart was reviewed and updated See scanned images from paperwork reviewed and completed today The following topics have been addressed/discusse d at today's visit: All recommended screening services (as applicable) including infectious diseases, osteoporosis, diabetes and/or diabetes complications, glaucoma, cognitive impairment, hearing impairment, alcohol misuse, cancer screening Fall risk assessment Alcohol misuse Counseling (if applicable) Tobacco Cessation Counseling (if applicable) Immunizations Vital Signs End of Life Care Patient was provided with a written copy of the care plan from today's visit to include topics of Fall prevention, Nutrition, Physical activity, Tobacco-use cessation, Social engagement, Weight loss, Cognition. PHQ-9 was administered today. 5 Mins spent discussing with the patient. 03/14/2025 Left foot pain (ICD-10 - M79.672) Rec voltaren gel topically, use heel pad. see podiatry ice after walking a lot. 03/14/2025 Gallstones (ICD-10 - K80.20) 11/06/2024 Sleep apnea, unspecified (ICD-10 - G47.30) - Chronic, stable. - Continue use of CPAP nightly; f/u with Pulmonology. 11/06/2024 Prediabetes (ICD-10 - R73.03) - A1c improved from 6.4% to 6.2%. - Continue Metformin ER 500 mg twice daily. - Emphasized lifestyle modifications including diet, sugar and carb intake, weight loss, and exercise in addition to medication compliance. - Can recheck this in 3 months. Continue current Metformin regimen. 12/02/2024 Shortness of breath (ICD-10 - R06.02) [facility] at [facility] 12/02/2024 Lower extremity edema (ICD-10 - R60.0) 12/02/2024 Enlarged prostate with lower urinary tract symptoms (ICD-10 - N40.1) 11/06/2024 Memory loss (ICD-10 - R41.3) - Memory has worsened since COVID. Currently on Donepezil (Aricept) 5mg daily. - Recommend follow-up with neurologist for worsening symptoms and further investigation of cause/diagnosis. 03/14/2025 Plantar fasciitis of left foot (ICD-10 - M72.2) 04/28/2025 Enlarged prostate with lower urinary tract symptoms (ICD-10 - N40.1) Frequent nocturia: - Increased nocturnal urination possibly related to adjustment in tamsulosin dosing for benign prostatic hyperplasia. - Advised to take two tamsulosin pills together half an hour before evening meal, or continue twice daily dosing as preferred. - Monitor for changes in urination and dizziness. Adjust dosing as needed based on symptoms and improvement in nocturia. 10/22/2024 Vitamin B12 deficiency anemia, unspecified (ICD-10 - D51.9) 02/03/2025 Gallstones (ICD-10 - K80.20) 12/25/2024 Chronic diarrhea (ICD-10 - K52.9) 10/22/2024 Encounter for screening for malignant neoplasm of prostate (ICD-10 - Z12.5) 12/25/2024 Dizziness (ICD-10 - R42) continue aldactone for now - legs are reduced in edema. Waiting on echo to determine cardiac function if contributing to dizziness or if it's all related to tamsulosin. 04/28/2025 Cerebrovascular disease, unspecified (ICD-10 - I67.9) Follow-up with neurology as directed and get MRI. Risk factor reduction discussed. 02/03/2025 Grade I diastolic dysfunction (ICD-10 - I51.89) seen on ECHO done 11/27/2024 10/22/2024 Body mass index (BMI) 40.0-44.9, adult (ICD-10 - Z68.41) 11/06/2024 Intermittent chest pain (ICD-10 - R07.9) 12/02/2024 Dementia, unspecified dementia severity, unspecified dementia type, unspecified whether behavioral, psychotic, or mood disturbance or anxiety (ICD-10 - F03.90) 11/06/2024 SOB (shortness of breath) on exertion (ICD-10 - R06.02) - Ordered BNP. - Will get repeat Echo, not one on record recently done in the past year. Last Echo revealed diastolic dysfunction - Based on symptoms: SOB, LE edema and chest discomfort; will go ahead and have him stop Potassium supplementation, add Spironolactone 25mg daily along with continuation of taking Furosemide 40mg daily. - Recommend low sodium diet/heart healthy diet, daily intentional exercise or movement, weight management, and medication compliance. - Routine monitoring of BMP. - Encouraged monitoring blood pressure at home daily (check BP upon awakening, then 1-2 hours after taking diuretic medication) and log readings. - Monitor for symptoms such as: worsening chest pain, dyspnea, swelling in legs, fatigue, dizziness upon standing, vision changes and/or headaches. - Recommend f/u 1 month with repeat BMP, sooner if needed. 04/28/2025 Plantar fasciitis, left (ICD-10 - M72.2) Plantar fasciitis with heel spur: - Plantar fasciitis with associated bone spur confirmed by physical examination. Persistent pain despite prior corticosteroid injection. - Recommended use of firm arch supports and heel cup in both shoes to provide better support and reduce overstretching of the plantar fascia. - Advised to consider removing extra cushion and using a heel cup, available at foot stores or general retailers. - Suggested trial of foam roller or frozen water bottle massage to help break up scar tissue and reduce inflammation. - Noted that recovery from plantar fasciitis may take 2 to 6 months. - If symptoms do not improve after trying these measures for a few weeks, advised to contact shuttle truck driver prior to scheduled June follow-up rather than waiting. 10/22/2024 Hyperlipidemia, unspecified (ICD-10 - E78.5) 12/25/2024 Enlarged prostate with lower urinary tract symptoms (ICD-10 - N40.1) 12/02/2024 Anxiety disorder, unspecified (ICD-10 - F41.9) Has anxiety about his memory problems at baseline. However is ill with metastatic cancer and brother has metastatic cancer which is caused more stress and anxiety. Offered medication to help with his stress and anxiety and suggested counseling as well. He would like to hold off on medication, but options were discussed. 02/03/2025 Shortness of breath (ICD-10 - R06.02) 12/02/2024 Adjustment disorder with depressed mood (ICD-10 - F43.21) 12/25/2024 Shortness of breath (ICD-10 - R06.02) 02/03/2025 Intermittent diarrhea (ICD-10 - R19.7) 04/28/2025 Gilbert syndrome (ICD-10 - E80.4) Elevated bilirubin and gallstones: - Isolated elevated bilirubin and gallstones are two separate issues. No current indication for cholecystectomy as gallstones are asymptomatic. - Continue routine monitoring of liver function and bilirubin with periodic blood tests. No intervention required unless development of symptoms such as right upper quadrant pain, nausea, or vomiting. 11/06/2024 Bilateral lower extremity edema (ICD-10 - R60.0) - Continue Lasix, adding Aldactone. - Continue daily use of compression stockings. - Ordering Echo. 11/06/2024 Enlarged prostate with lower urinary tract symptoms (ICD-10 - N40.1) - Tamsulosin seems less effective for urinary symptoms at 0.4mg dose currently. - Will increase dose to 2 tablets daily (0.8mg total) to see if this helps with symptoms and provides relief. Discussed to go ahead and use current prescription that was filled and just take 2 tablets daily. - Advised to be cautious on increased dose due to potential effects of orthostatic hypotension. - Advised to monitor BP's daily and call with any concerns. 04/28/2025 Memory loss (ICD-10 - R41.3) Memory impairment: - Ongoing memory impairment, possibly related to prior COVID infection. Neurology follow-up in late April 2025. Currently on donepezil 5 mg, with consideration for dose increase by neurologist. - Scored a perfect score on memory test during this visit; possible improvement may be related to doxepin and better sleep quality. - Continue donepezil 5 mg. Follow up with neurologist after recent brain MRI. Maintain written lists for daily tasks as compensatory strategy. 04/28/2025 Laceration without foreign body of left hand, subsequent encounter (ICD-10 - S61.412D) Follow-up with specialist as directed. As appointment with hand surgeon already. Tendon function appears to be intact 04/28/2025 Laceration of unspecified muscle, fascia and tendon at wrist and hand level, left hand, subsequent encounter (ICD-10 - S66.922D) Hand laceration with partial tendon injury: - Hand laceration with partial accessory extensor tendon injury, currently healing with stitches in place. Function appears preserved. - Continue cephalexin as prescribed. Follow up with hand surgeon on April 29, 2025, for evaluation of tendon healing and possible stitch removal. - Hand surgeon will assess tendon strength and healing; if function is good, no further intervention may be needed. - Advised to avoid lifting or forceful use of hand until cleared by specialist. If hand surgeon approves, stitches may be removed in primary care office after 10 days. 04/28/2025 Encounter for immunization (ICD-10 - Z23) Influenza vaccination: - Indicated for annual prevention. - Administered high-dose influenza vaccine on April 28, 2025, after obtaining consent. 04/28/2025 Morbid (severe) obesity due to excess calories (ICD-10 - E66.01) BMI is about 35. It's 37. Recommended weight loss through activity, but his shortness of breath is limiting. Could consider medication options if desired in the future. Discussed diet and calorie reduction. 04/28/2025 Personal history of pulmonary embolism (ICD-10 - Z86.711) Taking Xarelto for protection against future pulmonary emboli. Need to get imaging to confirm whether or not he does have indeed a chronic DVT in the lower extremity. Several years ago there was mention that he had the sun ultrasound and I'm not sure it's been repeated by the collating machine operator Dr. savi moreno that he sees every April and will probably see later this month. 12/02/2024 Other Dementia - Significant decline in short-term memory over the last year or two. Appointment scheduled at the [facility] in [place] for further evaluation in March. - Await results from the [facility] evaluation for more clarity. Brain imaging showed cerebrovascular disease in the past. Was very ill with Covid in 2019 and had double PEs. Possibly had CVA at that time affecting his memory or that it could be post covid. He can add numbers in his head and do certain tasks but short term memory is lacking. Continue aricept for now. - Consider potential interventions based on evaluation results. Dizziness and Dyspnea: - Symptoms likely related to blood pressure changes due to medication. Suspected orthostatic hypotension from medications including Flomax, spironolactone, and doxepin. - Test blood pressure while laying down and standing. Consider adjusting water pills, potentially discontinuing furosemide. Blood tests ordered to assess kidney function. - Monitor symptoms and adjust medications as needed. Weight Loss: - Loss of 7 lbs in the last month, likely due to fluid loss from spironolactone. - Monitor weight and fluid status. Adjust medications as needed based on test results. - Evaluate dietary intake and consider nutritional support if necessary. Urinary Difficulty: - Difficulty urinating, possibly related to prostate issues. - Consider referral to a urologist for further evaluation. - Monitor urinary symptoms and adjust medications as needed. Stress and Anxiety: - Increased stress due to personal circumstances, including family health issues. - Discuss potential use of medication for stress management in future visits. - Consider counseling or support groups for stress management. Dyspnea and Potential Lung Issues: - Worsening dyspnea; family history of lung cancer. -Nothing from his recollection has helped his symptoms of SOB. - Consider ordering a chest scan to rule out any serious conditions. - Monitor respiratory symptoms. Sees pulmonology regularly. - Ct chest from 06/[address] Bentley at [facility] pulm showed no acute changes. Nodules that rerquire f/u in Jun. 12/25/2024 Other Shortness of breath: - No abnormalities found in the chest CT scan. No pneumonia, lymph nodes, cancer, or aneurysm. Shortness of breath not related to hiatal hernia. - Continue seeing lung specialist twice a year. CT scan scheduled for later in the year. Elevated bilirubin: - Bilirubin borderline high, likely genetic. Liver function tests are normal. - Order CAT scan of abdomen and pelvis to investigate further. The scan will also check for any anatomical issues related to the pancreas and liver. Intermittent diarrhea: - Likely related to fat intake and gallbladder function. - Order CAT scan of abdomen and pelvis. Consider HIDA scan if gallbladder appears sludgy or if symptoms continue. Discuss potential dietary changes to manage symptoms, possibly involving a dietitian. Dizziness and weakness upon standing: - Likely side effect of Flomax (tamsulosin) affecting blood pressure. - Reduce tamsulosin to 0.4 mg once a day in the afternoon. Monitor blood pressure and dizziness. Prostate issues: - Difficulty urinating, possibly related to prostate medication. - Consider urology consultation for further management. -wait to see what lower dose flomax affects him. consider finasteride and rectal exam. Acid reflux and throat irritation (chronic GERD but not classically symptomatic) - Possible acid reflux causing throat irritation and cough. - Prescribe famotidine 40 mg at nighttime for 2 months. 02/03/2025 Other cardiology - need records. Gallstones with frequent diarrhea: - Gallstones present with frequent, unpredictable diarrhea, possibly related to gallbladder dysfunction. Concern for potential gallbladder complications, including risk of obstruction and pancreatitis. Not clear if gallstones are related to cause for diarrhea - typically remove GB when pain with gallstones. Total BIli elevation without LFT elevation makes obstruction of duct much less likely. could have Gilbert's syndrome as cause for elevated bili alone. - Pending surgical consult with Dr. Nicole to evaluate need for cholecystectomy. Will follow up with Dr. Nicole's office this week to determine status of referral and ensure timely appointment, as patient has not yet been contacted. Recommendation to keep a detailed food and symptom diary, including specific foods, types of chips, sandwich ingredients, and timing of diarrhea episodes, to help correlate dietary triggers with diarrhea. If surgical evaluation is not definitive for the cause of diarrhea, will consider GI referral and/or additional GI workup. Patient advised that gallbladder surgery may be indicated if symptoms worsen. Office will call patient with updates on referral status. Urinary retention and difficulty urinating (enlarged prostate): - Enlarged prostate with persistent urinary retention and difficulty urinating. No improvement with reduced Flomax dose. Prostate exam reveals mild enlargement without nodules. PSA previously normal. - Initiation of finasteride 5 mg once daily in addition to Flomax to reduce prostate size and improve urination. Patient advised that it may take 2-4 weeks, up to 1-2 months, to notice improvement. Plan to reassess symptoms in 1-2 months. Urology referral to be considered if no improvement with medication. Prostate exam performed today, no concerning findings. Advised to reduce caffeine intake to minimize bladder irritability. Dizziness and weakness with exertion: - Dizziness and leg weakness likely related to blood flow changes, exacerbated by medications and positional changes (bending forward). Not attributed to cardiac etiology based on current assessment but likely vascular issue. Obese abdomen likely causes venous compression and temporary drop in blood flow. CT didnn't show mass in abdomen. - Continue monitoring symptoms. Reduced Flomax dose to minimize hypotensive side effects. Will review cardiology records to confirm prior evaluation and stress testing, as patient recalls prior cardiology visit but details are unclear. Chronic cough and throat tickle, possible reflux: - Chronic cough and throat tickle possibly related to acid reflux affecting vocal cords. No evidence of acute respiratory or infectious process. - Continue famotidine (Pepcid) for reflux. Monitor for improvement after gallbladder management, as gallbladder dysfunction may contribute to reflux. If symptoms persist or worsen, consider swallowing evaluation and/or ENT referral for further assessment. 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 Under care of memory specialist (Dr. Jagdish Nj), with follow-up scheduled in March. - Continue follow-up with memory specialist. No additional interventions at this time. Lower extremity swelling and dyspnea: changed lasix for aldactone and appears to be a lateral move/slightly positive move, BUT no effect on his SOB. - Lower extremity swelling and mild dyspnea stable on current regimen. No acute decompensation noted. - Continue current management. No changes to diuretic therapy at this time. SOB -Question of whether or not is related to subglottic stenosis. consider CT neck to evaluate in the future. F/U with pulm. 03/14/2025 Other Left heel pain: - Plantar fasciitis suspected. Differential diagnosis includes calcaneal bone spur and less likely, calcaneal stress fracture. - Ordered left foot X-ray to evaluate for bone spur or stress fracture. Patient instructed to check in at the front of the hospital for registration and imaging, and will be called with results later today. - Discussed possible referral to shuttle truck driver for steroid injection if indicated. - Recommended use of heel cushion gel inserts for both heels to avoid imbalance; these may help with symptomatic relief when walking. - May prescribe topical analgesic gel or pain medication pending X-ray results; kidneys can tolerate pain medication if needed. - Consideration of arch support modification or resurfacing if needed, as patient has used custom arch supports for a long time. - If X-ray shows fracture, will adjust management accordingly and avoid steroid injection. - Patient advised that redoing arch supports may resolve symptoms. Gallstones: - Known cholelithiasis, asymptomatic, pending specialist follow-up. - Advised to follow up with Dr. Nicole regarding gallstones. Office staff will contact Dr. Nicole's office again to facilitate communication and ensure referral is processed. - No acute intervention required at this time. Plan Of Treatment Pending Test Test Name Order Date proBrain Natriuretic Peptide NT-ARUP Next Appt Details Provider Name:Dr. Marisol Webb, 04/30/2026 02:15:00 PM, [address] [facility], [place], [address], [phone] Insurance Providers Payer Name Payer Address Payer Phone Subscriber Number Group Number Insured Name Patient Relationship to Insured Coverage Start Date Coverage End Date [employer] Medicare RHC [address] [place] [phone] [id number] Backs, Antoine Self - patient is the insured 2 [employer] [address] [address] [place] [address] [id number] Backs, Antoine Self - patient is the insured 2 [employer] Medicare B [address] [place] [address] [id number] Backs, Antoine Self - patient is the insured 2 Medical (General) History Medical History History ICD Code Personal history of other drug therapy Z 92.29 Personal history of pulmonary embolism Z 86.711 Family history of other specified condit ions Z84.89 [facility] (current) use of inhaled stero ids Z79.51 Body mass index (BMI) 37.0-37.9, adult Z 68.37 Abnormal electrocardiogram [ECG] [EKG] R 94.31 Solitary pulmonary nodule R91.1 Prediabetes R73.03 Enlarged prostate with lower urinary tra ct symptoms N40.1 Other obstructive and reflux uropathy N1 3.8 Spinal stenosis, cervical region M48.02 Bunion of unspecified foot M21.619 Other hammer toe(s) (acquired), left jade t M20.42 Other hammer toe(s) (acquired), right fo ot M20.41 Unspecified osteoarthritis, unspecified site M19.90 Gastro-esophageal reflux disease without esophagitis K21.9 Allergic rhinitis, unspecified J30.9 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 Moderate size marginal, one large marginal, and several smaller marginals without occlusive disease knee surgery ,notes : left knee replacement 2020 right knee replacement 02/2022 (95059) DOPPLER ECHO EXAM HE ART ,notes : EF 55-60%. Mild cocentric left ventricular hypertrophy colonoscopy ,notes : 03/29/19 Cardiovascular stress test u sing maximal or submaximal treadmill or bicycle exercise, continuous donald 05/30/2016
--- OUTSIDE RECORDS SUMMARY | 2025-05-14 10:36 | XMS_ITS | Encounter Summary ---
Author Organization [email or web address] [facility] Address [address] [place] [address] Phone Care Team Providers Care Door Furring Installer Name Role Phone Yenifer Adamson MD Primary Care Provider Reason for Referral * - Closed Specialty Diagnoses / Procedures Referred By Yvonne ponce Referred To Contact Diagnoses Status post total knee replacement, right Procedures XR KNEE RIGHT AP / LAT Richy Butler MD [address] [place] [address] Phone: tel: fax: Referral ID Status Reason Start Date Expiration Date Visits Re quested Visits Authorized [id number] Closed 10/11/2021 10/11/2022 1 1 * - Closed Specialty Diagnoses / Procedures Referred By Yvonne ponce Referred To Contact Diagnoses Status post total knee replacement, right Procedures XR KNEE RIGHT AP / LAT Richy Butler MD [address] [place] [address] Phone: tel: fax: Referral ID Status Reason Start Date Expiration Date Visits Re quested Visits Authorized [id number] Closed 10/11/2021 10/11/2022 1 1 Reason for Visit * Reason Onset Date Comments Appointment Request 10/11/2021 Encounter Details Date Type Department Care Team (Late st Contact Info) Description 10/11/2021 Telephone [facility] [address] [place] [address] Richy Butler MD [address], [place] [address] Appointment Request Social History Tobacco Use Types [...] PM CDT documented as of this encounter Miscellaneous Notes * Telephone Encounter - Veronique Lopez - 11/03/2021 3:35 PM CDT Pt called and confirmed pre op apt with primary. * Telephone Encounter - Itzel Avila - 10/20/2021 9:58 AM CDT Patients preop scheduled with Dr. Adamson 01/14/22 at 1030. Forms faxed. * Telephone Encounter - Itzel Avila - 10/11/2021 9:20 AM CDT X-ray scheduled per protocol Pt has been vaccinated for Covid. Pt aware to inform office in the event they develop symptoms or have a known exposure within two weeks of surgery. SSS- pt to call and schedule preop with PCP. Postponing to 12/15/21 to followup with patient if they have not called with date/time. preop packet will need faxed. documented in this encounter Plan of Treatment Not on file documented as of this encounter Results * XR KNEE RIGHT AP / LAT (04/25/2022 1:52 PM CDT) Anatomical Region Laterality Modality Knee Right Digital Radiogra phy 04/25/2022 1:48 PM CDT Narrative 04/25/2022 3:35 PM CDT Accession Exam Completed Date/Time [id number] XR KNEE RIGHT AP / LAT 04/25/2022 13:52 Requesting: RICHY BUTLER PROVIDED REASON FOR STUDY:STATUS POST TOTAL KNEE REPLACEMENT RIGHT SYMPTOMS: 8 week post op follow up. DOS 03/01/22. patient states no pain. COMPARISON:March 14, 2022 FINDINGS: 2 views of the right knee. Stable total right knee arthroplasty. Intact components. No periprosthetic lucencies or fractures. No acute findings IMPRESSION: Stable total right knee arthroplasty. Electronically Signed and Authenticated by Bernard Del Cid MD 04/25/2022 15:35 Procedure Note Bernard Del Cid MD - 04/25/2022 Accession Exam CompletedDate/Time [id number] XR KNEE RIGHT AP / LAT 3:52 Requesting: RICHY BUTLER PROVIDED REASON FOR STUDY:STATUS POST TOTAL KNEE REPLACEMENT RIGHT SYMPTOMS: 8 week post op follow up. DOS 03/01/22. patient states no pain. COMPARISON:March 14, 2022 FINDINGS: 2 views of the right knee. Stable total right knee arthroplasty. Intactcomponents. No periprosthetic lucencies or fractures. No acute findings IMPRESSION: Stable total right knee arthroplasty. Electronically Signed and Authenticated by Bernard Del Cid MD 5:35 Richy Butler MD PORTABLE X-RAY Final Result * XR KNEE RIGHT AP / LAT (03/14/2022 2:11 PM CDT) Anatomical Region Laterality Modality Knee Right Digital Radiogra phy 03/14/2022 2:05 PM CDT Narrative 03/14/2022 4:53 PM CDT Accession Exam Completed Date/Time [id number] XR KNEE RIGHT AP / LAT 03/14/2022 14:11 Requesting: RICHY BUTLER PROCEDURE: XR KNEE RIGHT AP / LAT HISTORY: STATUS POST TOTAL KNEE REPLACEMENT RIGHT COMPARISON: 03/01/2022. VIEWS: 2 FINDINGS: Total right knee arthroplasty appears intact with satisfactory alignment. Overlying skin ben and surgical drain have been removed. No evidence for loosening. No acute findings. IMPRESSION: Stable total left knee arthroplasty with good alignment. Assisted by Tiffanie Mcnair RPA 03/14/2022 16:53 Electronically Signed and Authenticated by Heriberto Houston 03/14/2022 16:53 Procedure Note Heriberto Houston MD - 03/14/2022 Accession Exam CompletedDate/Time [id number] XR KNEE RIGHT AP / LAT 214:11 Requesting: RICHY BUTLER PROCEDURE: XR KNEE RIGHT AP / LAT HISTORY: STATUS POST TOTAL KNEE REPLACEMENT RIGHT COMPARISON: 03/01/2022. VIEWS: 2 FINDINGS: Total right knee arthroplasty appears intact with satisfactoryalignment. Overlying skin ben and surgical drain have been removed. Noevidence for loosening. No acute findings. IMPRESSION: Stable total left knee arthroplasty with good alignment. Assisted by Tiffanie Mcnair RPA 03/14/2022 16:53 Electronically Signed and Authenticated by Heriberto Houston 03/14/2022 16:53 us Richy Butler MD PORTABLE X-RAY Final Result documented in this encounter Visit Diagnoses Diagnosis Status post total knee replacement, right- Primary Status post total knee replacement, right Status post total knee replacement, right documented in this encounter Care Teams Door Furring Installer Relationship Specialty Start Date End Date Yenifer Adamson MD [address] [place] [address] PCP - General Family Medicine 10/12/20 documented as of this encounter
--- OUTSIDE RECORDS SUMMARY | 2025-05-14 10:36 | XMS_ITS | Encounter Summary ---
Author Organization [facility] Address [address] [place] [address] Phone Care Team Providers Care Risk Compliance Manager Name Role Phone Yenifer Adamson MD Primary Care Provider Encounter Details Date Type Department Care Team ([facility] st Contact Info) Description 02/11/2021 Telephone [facility] [address] [place] [address] Richy Contreras MD [address] [place] [address] Social History Tobacco Use Types [...] have Coronavirus / COVID-19? No / Unsure 02/11/2021 12:13 PM CDT documented as of this encounter Miscellaneous Notes * Telephone Encounter - Adela King RN - 02/11/2021 12:35 PM CDT Pt presented to office this morning for 2 week post op appointment with Dr Contreras. Pt's Left TKA incision appears to be healing well- incision is C/D/I and incision edges are well approximated. Dried drainage notes and lateral/medial blisters covered with bandage. Advised pt that MOTEL MAID (Claudia) would apply betadine swabs x3 to incsion, remove ben, & place steri strips. Advised pt that thesewould stay in place for 1 week & would then flake off on their own. Advised pt to cover their incision while showering for 2 more days (Monday), and then they can start washing their incision in the shower with antibacterial soap. Advised against soaking incision in tub, Jacuzzi, or pool as this would increase their risk for infection. Reviewed s/s of infection & when to notify our office. Pt verbalized understanding & is agreeable to plan. documented in this encounter Plan of Treatment Not on file documented as of this encounter Visit Diagnoses Not on filedocumented in this encounter Care Teams Risk Compliance Manager Relationship Specialty Start Date End Date Yenifer Adamson MD [address] [place] [address] PCP - General Family Medicine 10/12/20 documented as of this encounter
--- OUTSIDE RECORDS SUMMARY | 2025-05-14 10:36 | XMS_ITS | Encounter Summary ---
Author Organization [employer] [facility] Address [address] [place] [address] Phone Care Team Providers Care Retail Salesperson Name Role Phone Yenifer Adamson MD Primary Care Provider Encounter Details Date Type Department Care Team ([facility] st Contact Info) Description 01/13/2022 Telephone [facility] Total [facility] [address] [place] [address] Richy Contreras MD [address] [place] [address] Social History Tobacco Use Types [...] encounter Miscellaneous Notes * Telephone Encounter - Morena Fregoso RN - 01/14/2022 9:06 AM CDT Called patient to let him know of advisement below. Vit d placed. * Telephone Encounter - Pratibha Jim RN - 01/13/2022 4:53 PM CDT ----- Message from Richy Contreras MD sent at 01/13/2022 8:54 AM CDT ----- Vitamin D is deficient preop. Needs vitamin D3 50,000 PO Q weekly, disp # 6. 4th dose day before surgery 02/02 documented in this encounter Plan of Treatment Not on file documented as of this encounter Visit Diagnoses Diagnosis Vitamin D deficiency- Primary Unspecified vitamin D deficiency documented in this encounter Care Teams Retail Salesperson Relationship Specialty Start Date End Date Yenifer Adamson MD [address] [place] [address] PCP - General Family Medicine 10/12/20 documented as of this encounter
--- OUTSIDE RECORDS SUMMARY | 2025-05-14 10:36 | XMS_ITS | Encounter Summary ---
Author Organization [employer] [facility] Address [address] [place] [address] Phone Care Team Providers Care Rn Ed Name Role Phone Yenifer Adamson MD Primary Care Provider Encounter Details Date Type Department Care Team ([facility] st Contact Info) Description 01/07/2021 Telephone [facility] [address] [place] [address] Richy Contreras MD [address] [place] [address] Social History Tobacco Use Types [...] encounter Miscellaneous Notes * Telephone Encounter - Chaparro Jessica RN - 01/07/2021 8:53 AM CDT This encounter was opened in error. Please disregard. documented in this encounter Plan of Treatment Not on file documented as of this encounter Visit Diagnoses Not on filedocumented in this encounter Care Teams Rn Ed Relationship Specialty Start Date End Date Yenifer Adamson MD [address] [place] [address] PCP - General Family Medicine 10/12/20 documented as of this encounter
--- OUTSIDE RECORDS SUMMARY | 2025-05-14 10:36 | XMS_ITS | Clinical Summary ---
Author Organization [facility] Address [address] [place] [address] Phone Care Team Providers Care Hand Bindery Assembly Worker Name Role Phone Yenifer Adamson MD Primary Care Provider Allergies No known active allergies Medications aspirin enteric coated 81 mg tablet, delayed release Take 81 mg by mouth Active cyanocobalamin (VITAMIN B-12) 1,000 mcg tablet Take 1,000 mcg by mouth every morning Active furosemide (LASIX) 40 mg tablet Take 40 mg by mouth every morning Active potassium chloride 20 mEq extended release tablet Take 20 mEq by mouth every evening Active albuterol HFA 90 mcg/actuation inhaler 1 Active fluticasone propion-salmetero L 250-50 mcg/dose diskus inhaler Take 1 puff inhaled by mouth in the morning and at bedtime 2 Active donepeziL (ARICEPT) 5 mg tablet Take 5 mg by mouth every evening 2 Active pantoprazole (PROTONIX) 40 mg tablet Take 40 mg by mouth every morning 2 Active Zinc 50 mg Tab Take 1 tablet by mouth every morning Active ascorbic acid, vitamin C, (VITAMIN C) 500 mg tablet Take 500 mg by mouth every morning Active traMADoL (ULTRAM) 50 mg tabletIndications :neuropathic pain Take 1 tablet (50 mg total) by mouth 3 (three) times daily as needed for pain 45 tablet 2 Active acetaminophen (TYLENOL EXTRA STRENGTH) 500 mg tabletIndications :pain Take 2 tablets (1,000 mg total) by mouth 3 (three) times daily 90 tablet 2 Active rivaroxaban (XARELTO) 10 mg tabletIndications :DVT Prophylaxis after major elective arthroplasty Take 1 tablet (10 mg total) by mouth every day with evening meal Resume xarelto 20 mg total by mouth on 04/01/22 28 tablet 2 Active Active Problems Problem Noted Date Diagnosed Date Primary osteoarthritis of right knee 01/26/2021 Immunizations Immunization Administration Dates Next Due SARS-CoV-2 (Moderna Monovalent COVID-19) 021,08/22/2020 Social History Tobacco Use Types Packs/Day Years [...] Sign Reading Time Taken Comments Blood Pressure 120/72 03/02/2022 11:00 AM CDT Pulse 78 03/02/2022 11:00 AM CDT Temperature 36.8 C (98.2 F) 04/25/2022 1:55 PM CDT Respiratory Rate 18 03/02/2022 11:00 AM CDT Oxygen Saturation 96% 03/02/2022 11:00 AM CDT Inhaled Oxygen Concentration - - Weight 130.2 kg (287 lb) 03/01/2022 10:04 AM CDT Height 185.4 cm (6' 0.99) 03/01/2022 10:04 AM C DT Body Mass Index 37.87 03/01/2022 10:04 AM CDT Plan of Treatment Health Maintenance Due Date Last Done Comments Diagnostic Colonoscopy 1951 Depression Screening 1963 DTaP/Tdap/Td Vaccines (1 - Tdap) 1970 CT Colonography 01/29/1996 Colorectal Cancer Screening 01/29/1996 FIT-DNA (Cologuard) 01/29/1996 Fecal Immunochemical Testing (FIT) 01/29/1996 Fecal Occult Blood (FOBT) 01/29/1996 Flexible Sigmoidoscopy 01/29/1996 Screening Colonoscopy 01/29/1996 Fall Screening 01/29/2016 Eligible for Initial Annual Medicare Wellness Exam 01/14/2017 Screening for Diabetes 03/02/2025 2, 01/12/2022, 2021, Additional history exists COVID-19 Vaccine ( season) 2025 09/19/2020, 08/22/2020 Influenza Vaccine (#1) 2025 9, 05/30/2018, 05/31/2017 RSV Vaccine (60+/) (1 - 1-dose 75+ series) 2026 Pneumococcal Vaccines (50+) Completed 07/27/2017, 1 07/30/2015 Zoster (Shingles) Vaccine Completed 2019, 04/02/2020, 05/30/2015 HCPOA Document on File Completed 01/27/2021 HIB Vaccines Aged Out No longer eligi ble based on patient's age to complete this topic HPV Vaccines Aged Out No longer eligi ble based on patient's age to complete this topic Hepatitis A Vaccines Aged Out No long er eligible based on patient's age to complete this topic Hepatitis B Vaccines Aged Out No long er eligible based on patient's age to complete this topic IPV Vaccines Aged Out No longer eligi ble based on patient's age to complete this topic Meningococcal B Vaccine Aged Out No l onger eligible based on patient's age to complete this topic Meningococcal Vaccine (ACWY) Aged Out No longer eligible based on patient's age to complete this topic Rotavirus Vaccines Aged Out No longer eligible based on patient's age to complete this topic Medical Devices Implanted Type Area Paediatric Surgeon Device Identifier Shelf Expiration Date Model / Serial / Lot Cement Simplex P Ful Dose 1 Pk - Sna Implanted:Qty : 1 on 01/27/20[place]y [place] [facility] [place]: Knee 05/16/2022 6191-1-010 / NA / [id number] Cement Simplex P Ful Dose 1 Pk - Sna Implanted:Qty : 1 on 01/27/2021 by Richy Contreras [place] [facility] [place] Left: Knee 04/15/2022 6191-1-010 / NA / [id number] Cement Simplex P Ful Dose 1 Pk 10 - [id number] Implanted:Qty : 2 on 03/01/2022 by Richy Contreras [place] [facility] [place] Right: Knee 06/15/2024 6191-1-010 / / [id number] Femur Ps Cemented Size 7 Left - Sna Implanted:Qty : 1 on 01/27/2021 by Richy Contreras MD at [facility] LOCATION TOTAL KNEE FEMORAL COMPONENT Left: Knee 12/18/2021 5515-F-701 / NA / [id number] Femur Ps Cemented Size 7 Right - [id number] Implanted:Qty : 1 on 03/01/2022 by Richy Contreras MD at [facility] LOCATION TOTAL KNEE FEMORAL COMPONENT Right: Knee 01/31/2027 5515-F-702 / / [id number] Patella Assy X3 38mm - Sna Implanted:Qty : 1 on 01/27/2021 by [place] [facility] [place] PATELLAR COMPONENT Left: Knee 11/23/2025 5551-G-381 / NA / [id number] Patella Assy X3 40mm - [id number] Implanted:Qty : 1 on 03/01/2022 by [place] [facility] [place] PATELLAR COMPONENT Right: Knee 08/21/2023 5551-G-401 -E / / [id number] Baseplate Cemented Size 6 - Sna Implanted:Qty : 1 on 01/27/2021 by [place]y Cont[place]ras [place] [facility] [place] KN[place] TIBIAL COMPONENT Left: Knee 09/30/2025 5520-B-600 / NA / [id number] Baseplate Cemented Size 6 - [id number] Implanted:Qty : 1 on 03/01/2022 by Richy Contreras MD at [facility] LOCATION TOTAL KNEE TIBIAL COMPONENT Right: Knee 01/30/2027 5520-B-600 / / [id number] Insert Ps X3 Size 6 12mm - Sna Implanted:Qty : 1 on 01/27/2021 by Richy Contreras MD at [facility] LOCATION TOTAL KNEE TIBIAL INSERT Left: Knee 09/30/2024 5532-G-612 -E / NA / [id number] Insert Ps X3 Size 6 10mm - [id number] Implanted:Qty : 1 on 03/01/2022 by Richy Contreras MD at [facility] LOCATION TOTAL KNEE TIBIAL INSERT Right: Knee 12/29/2026 5532-G-610 -E / / [id number] Procedures Procedure Name Priority Date/Time Associated Diagnosis Comments BASIC METABOLIC PANEL Routine 03/02/2022 2:37 AM CDT from Last 3 Months or Most Recently Relevant to Health Maintenance Results * (ABNORMAL) BASIC METABOLIC PANEL (03/02/2022 2:37 AM CDT) CALCIUM 8.4(L) 8.9 - 10.6 mg/dL [facility] GLUCOSE 117(H) 74 - 100 mg/dL [facility] BUN 18 8 - 26 mg/dL [facility] CREATININE 0.89 0.55 - 1.30 mg/dL [facility] SODIUM 139 136 - 145 mmol/L [facility] POTASSIUM 4.4 3.5 - 5.1 mmol/L [facility] CHLORIDE 107 98 - 107 mmol/L [facility] CO2 21.0(L) 22.0 - 29.0 mmol/L [facility] GFR:NON-SOLA N GRENADIAN >60 arbitrary unit [facility] GFR: >60 arbitrary unit [facility] Comment: Population mean GFR = 75 ml/min/1.73 sq.m. for ages 70+ years. * Chronic Kidney Disease: Less than 60 ml/min/1.73 square meters End Stage Renal Disease: Less than 15 ml/min/1.73 square meters NOTE: The reported GFR estimate is calculated using the MDRD equation and is intended only for assessment of chronic kidney disease. (Note added 08-13-07.) Effective 10-10-08 the IDMS-traceable MDRD Study equation is used to calculate eGFR; creatinine is calibrated to an IDMS-traceable standard. [facility], [address] [place] [id number] 03/02/2022 2:37 AM CDT 03/02/2022 3:26 AM CDT us Richy Contreras MD HEM/CHEM/IMMUN-BLOOD Final R esult [facility] [address] [place] [address], from Last 3 Months or Most Recently Relevant to Health Maintenance Insurance MEDICARE [facility]IC[facility] Advance Directives For more information, please contact: [phone] Documents on File Type Date Recorded Patient Devops Engineer Expl anation Power of Principal Cyber Engineer 01/27/2021 * Full Code (Latest Code Status on File) Date Activated Date Inactivated Comments 03/01/2022 5:11 PM 03/02/2022 12:59 PM * Full Code Date Activated Date Inactivated Comments 01/27/2021 3:03 PM 2021 2:13 PM Care Teams Hand Bindery Assembly Worker Relationship Specialty Start Date End Date Yenifer Adamson MD [address] [place] [address] PCP - General Family Medicine 10/12/20
--- OUTSIDE RECORDS SUMMARY | 2025-05-14 10:36 | XMS_ITS | Encounter Summary ---
Author Organization [facility] Address [address] [place] [address] Care Team Providers Care Planning Intern Name Role Phone Yenifer Adamson MD Primary Care Provider Encounter Details Date Type Department Care Team (Late st Contact Info) Description 05/13/2025 Orders Only [facility] Oncology and Hematology - [place] [address] [facility] [address] [place] [address] Nixon Jacobs MD [address] [facility] [address] [place] [address] Acute saddle pulmonary embolism without acute cor pulmonale (CMS/HCC) (Primary Dx) Social History Tobacco Use Types Packs/Day Years Used Date Smoking Tobacco: Never Smokeless Tobacco: Never Alcohol Use Standard Drinks/Week Comments Yes 0 (1 standard drink = 0.6 oz pur e alcohol) Sex and Gender Information Value Date Recorded Sex Assigned at Not on file Legal Sex Male 9:25 AM CDT Gender Identity Not on file Sexual Orientation Not on file documented as of this encounter Plan of Treatment Scheduled Orders Name Type Priority Associated Diagnoses Orde r Schedule BASIC METABOLIC PANEL Lab Routine Acute saddle pulmonary embolism without acute cor pulmonale (CMS/HCC) Expected: 05/13/2025, Expires: 05/13/2026 CBC WITH DIFFERENTIAL Lab Routine Acute saddle pulmonary embolism without acute cor pulmonale (CMS/HCC) Expected: 05/13/2025, Expires: 05/13/2026 documented as of this encounter Visit Diagnoses Diagnosis Acute saddle pulmonary embolism without acute cor pulmonale (CMS/HCC)- Primary documented in this encounter Care Teams Planning Intern Relationship Specialty Start Date End Date Yenifer Adamson MD [address] [place] [address] PCP - General Family Practice 11/08/18 documented as of this encounter
== END 2025-05-14 09:35 | disposition home or self-care (01) ==
LOC: ANHLAB 09:39
PROVIDERS: PCP Family Medicine; Visit Provider Internal Medicine Hematology & Oncology
DX: I26.92 Saddle embolus of pulmonary artery without acute cor pulmonale (principal)
CPT/HCPCS: 36415; 80047; 85025